=== PATIENT | female | born 1975 | race Caucasian/White ===

== ENCOUNTER 2016-02-23 07:32 | Observation (INO) | payer OTHER ==
[2016-02-23] MEDS ORDERED: SODIUM CHLORIDE 0.9% 500 ML IV STA (07:55)
[2016-02-23] MEDS ORDERED: MORPHINE SULFATE 4 MG/ML SYRINGE IV STA (07:55)
--- NOTE | 2016-02-23 07:58 | ED ---
Abdominal Pain HPI - General Chief Complaint: Abdominal Pain Stated Complaint: abd pain Time Seen by Provider: 02/23/16 07:47 Source: patient, RN notes reviewed Mode of arrival: ambulatory Limitations: no limitations - History of Present Illness MD Complaint: abdominal pain Onset/Timin -: days(s) Location: RLQ Radiation: none Migration to: no migration Severity: severe Quality: sharp Consistency: constant Improves With: nothing Worsens With: nothing Associated Symptoms: denies other symptoms - Related Data Home Medications Medication Instructions Recorded Confirmed Armodafinil [Nuvigil] 375 mg PO DAILY 07/19/13 02/23/16 lamoTRIgine [LaMICtal] 150 mg PO BID 07/19/13 02/23/16 ARIPiprazole [Abilify] 5 mg PO DAILY 02/23/16 02/23/16 Ibuprofen [Motrin] 600 mg PO Q6HR PRN 02/23/16 02/23/16 hydrOXYzine PAMOATE [Vistaril] 25 mg PO DAILY PRN 02/23/16 02/23/16 Allergies Allergy/AdvReac Type Severity Reaction Status Date / Time phenazopyridine HCl Allergy Severe rash Verified 02/23/16 08:40 [From Pyridium] face,arms & [id number] never to have again Review of Systems ROS Statement: Those systems with pertinent positive or pertinent negative responses have been documented in the HPI. ROS Other: All systems not noted in ROS Statement are negative. Constitutional: Denies: fever, chills Respiratory: Denies: cough, dyspnea Cardiovascular: Denies: chest pain, palpitations, edema Gastrointestinal: Reports: as per HPI, abdominal pain, constipation. Denies: nausea, vomiting, diarrhea, melena, hematochezia Genitourinary: Reports: frequency. Denies: dysuria, hematuria, discharge Musculoskeletal: Denies: back pain Skin: Denies: rash Neurological: Denies: headache, weakness, numbness Past Medical History Past Medical History: Sleep Apnea/CPAP/BIPAP Additional Past Medical History / Comment(s): NARCOLEPSY- CONTROLLED WITH MEDS, HEMORRHOIDS- IN ER 10/09/14 FOR PAIN-WAS LANCED AND SENT HOME-SEE ER NOTES-HAS HAD THROMBOSED HEMORRHOIDS X 2 BEFORE, OCCASIONAL DIARRHEA, HAS C-PAP BUT IS NOT USING @ THIS TIME History of Any Multi-Drug Resistant Organisms: None Reported Past Surgical History: Cholecystectomy, Tubal Ligation Additional Past Surgical History / Comment(s): laparoscopy, hemmorhoidectomy Past Anesthesia/Blood Transfusion Reactions: No Reported Reaction Additional Past Anesthesia/Blood Transfusion Reaction / Comment(s): difficulty coming out of anethesia, advised to stay overnight for observation. pt states uncontrollable shaking. Past Psychological History: Bipolar, Depression Smoking Status: Never smoker Past Alcohol Use History: None Reported Past Drug Use History: None Reported - Past Family History Mother Family Medical History: No Reported History Father History Unknown: Yes General Exam Limitations: no limitations General appearance: alert, in distress Head exam: Present: atraumatic, normocephalic Eye exam: Present: normal appearance. Absent: scleral icterus, conjunctival injection ENT exam: Present: normal oropharynx Neck exam: Present: normal inspection Respiratory exam: Present: normal lung sounds bilaterally. Absent: respiratory distress, wheezes, rales, rhonchi, stridor Cardiovascular Exam: Present: regular rate, normal rhythm, normal heart sounds. Absent: systolic murmur, diastolic murmur, rubs, gallop GI/Abdominal exam: Present: soft, tenderness, guarding, normal bowel sounds. Absent: rebound, rigid, mass, pulsatile mass, hernia External exam: Present: normal external exam, other (Chaperoned by Aminata) Speculum exam: Present: normal speculum exam, vaginal discharge. Absent: erythema, foreign body By manual exam: Present: cervical motion tenderness, adnexal tenderness. Absent : uterine enlargement, uterine tenderness Extremities exam: Present: normal inspection, normal capillary refill. Absent: pedal edema, calf tenderness Back exam: Present: normal inspection. Absent: CVA tenderness (R), CVA tenderness (L) Neurological exam: Present: alert Skin exam: Present: warm, dry, intact, normal color. Absent: rash, cyanosis, diaphoretic, erythema, petechiae, pallor, mottled Course Vital Signs 02/23/16 02/23/16 02/23/16 07:38 08:14 10:48 Temperature 99 F Pulse Rate 63 83 Respiratory 20 18 Rate Blood Pressure 105/73 111/51 O2 Sat by Pulse 98 99 Oximetry 02/23/16 12:35 Temperature 97.6 F Pulse Rate 72 Respiratory 16 Rate Blood Pressure 112/60 O2 Sat by Pulse 100 Oximetry Medical Decision Making - Lab Data Result diagrams: 02/23/16 08:00 02/23/16 08:00 Lab Results 02/23/16 02/23/16 02/23/16 Range/Units 08:00 08:00 08:50 WBC 8.2 (3.8-10.6) k/uL RBC 4.65 (3.80-5.40) m/uL Hgb 13.4 (11.4-16.0) gm/dL Hct 39.8 (34.0-46.0) % MCV 85.7 (80.0-100.0) fL MCH 28.9 (25.0-35.0) pg MCHC 33.7 (31.0-37.0) g/dL RDW 12.7 (11.5-15.5) % Plt Count 375 (150-450) k/uL Neutrophils % 63 % Lymphocytes % 24 % Monocytes % 6 % Eosinophils % 4 % Basophils % 1 % Neutrophils # 5.2 (1.3-7.7) k/uL Lymphocytes # 2.0 (1.0-4.8) k/uL Monocytes # 0.5 (0-1.0) k/uL Eosinophils # 0.4 (0-0.7) k/uL Basophils # 0.1 (0-0.2) k/uL Sodium 144 (137-145) mmol/L Potassium 4.3 (3.5-5.1) mmol/L Chloride 109 H (98-107) mmol/L Carbon Dioxide 23 (22-30) mmol/L Anion Gap 12 mmol/L BUN 13 (7-17) mg/dL Creatinine 0.70 (0.52-1.04) mg/dL Est GFR (MDRD) Af Amer >60 (>60 ml/min/1.73 sqM) Est GFR (MDRD) Non-Af >60 (>60 ml/min/1.73 sqM) Glucose 105 H (74-99) mg/dL Calcium 9.3 (8.4-10.2) mg/dL Total Bilirubin 0.3 (0.2-1.3) mg/dL AST 25 (14-36) U/L ALT 43 (9-52) U/L Alkaline Phosphatase 84 (38-126) U/L Total Protein 7.2 (6.3-8.2) g/dL Albumin 4.4 (3.5-5.0) g/dL Urine Color Urine Appearance (Clear) Urine pH (5.0-8.0) Ur Specific Evans (1.001-1.035) Urine Protein (Negative) Urine Glucose (UA) (Negative) Urine Ketones (Negative) Urine Blood (Negative) Urine Nitrate (Negative) Urine Bilirubin (Negative) Urine Urobilinogen (<2.0) mg/dL Ur Leukocyte Esterase (Negative) Urine WBC (0-5) /hpf Ur Squamous Epith Cells (0-4) /hpf Urine Mucus (None) /hpf Urine HCG, Qual Not Detected (Not Detectd) 02/23/16 Range/Units 08:50 WBC (3.8-10.6) k/uL RBC (3.80-5.40) m/uL Hgb (11.4-16.0) gm/dL Hct (34.0-46.0) % MCV (80.0-100.0) fL MCH (25.0-35.0) pg MCHC (31.0-37.0) g/dL RDW (11.5-15.5) % Plt Count (150-450) k/uL Neutrophils % % Lymphocytes % % Monocytes % % Eosinophils % % Basophils % % Neutrophils # (1.3-7.7) k/uL Lymphocytes # (1.0-4.8) k/uL Monocytes # (0-1.0) k/uL Eosinophils # (0-0.7) k/uL Basophils # (0-0.2) k/uL Sodium (137-145) mmol/L Potassium (3.5-5.1) mmol/L Chloride (98-107) mmol/L Carbon Dioxide (22-30) mmol/L Anion Gap mmol/L BUN (7-17) mg/dL Creatinine (0.52-1.04) mg/dL Est GFR (MDRD) Af Amer (>60 ml/min/1.73 sqM) Est GFR (MDRD) Non-Af (>60 ml/min/1.73 sqM) Glucose (74-99) mg/dL Calcium (8.4-10.2) mg/dL Total Bilirubin (0.2-1.3) mg/dL AST (14-36) U/L ALT (9-52) U/L Alkaline Phosphatase (38-126) U/L Total Protein (6.3-8.2) g/dL Albumin (3.5-5.0) g/dL Urine Color Yellow Urine Appearance Clear (Clear) Urine pH 7.0 (5.0-8.0) Ur Specific Evans 1.016 (1.001-1.035) Urine Protein Negative (Negative) Urine Glucose (UA) Negative (Negative) Urine Ketones Negative (Negative) Urine Blood Negative (Negative) Urine Nitrate Negative (Negative) Urine Bilirubin Negative (Negative) Urine Urobilinogen <2.0 (<2.0) mg/dL Ur Leukocyte Esterase Small H (Negative) Urine WBC 1 (0-5) /hpf Ur Squamous Epith Cells 2 (0-4) /hpf Urine Mucus Occasional H (None) /hpf Urine HCG, Qual (Not Detectd) Disposition Clinical Impression: Abdominal pain Disposition: ADMITTED IP TO THIS [facility] Condition: Fair
[2016-02-23 08:16] LABS: Basophils # (A) 0.1 k/uL (0-0.2); Basophils % (A) 1 %; CH 29.9; Eosinophils # (A) 0.4 k/uL (0-0.7); Eosinophils % (A) 4 %; HCT 39.8 % (34.0-46.0); HDW 2.68; HGB 13.4 gm/dL (11.4-16.0); Luc # (Auto) 0.13; Luc % (Auto) 2; Lymphocytes % (A) 24 %; MCH 28.9 pg (25.0-35.0); MCHC 33.7 g/dL (31.0-37.0); MCV 85.7 fL (80.0-100.0); Mean Platelet Volume 6.6; Monocytes # (A) 0.5 k/uL (0-1.0); Monocytes % (A) 6 %; Neutrophils # (A) 5.2 k/uL (1.3-7.7); Neutrophils % (A) 63 %; RBC 4.65 m/uL (3.80-5.40); RDW 12.7 % (11.5-15.5); WBC 8.2 k/uL (3.8-10.6); WBC (Perox) 8.09
[2016-02-23 08:28] LABS: ALT 43 U/L (9-52); AST 25 U/L (14-36); Alkaline Phosphatase 84 U/L (38-126); Anion Gap 12 mmol/L; Blood Urea Nitrogen 13 mg/dL (7-17); Calcium 9.3 mg/dL (8.4-10.2); Carbon Dioxide 23 mmol/L (22-30); Chloride 109 mmol/L (98-107); Glucose 105 mg/dL (74-99); Non-African American GFR(MDRD) >60 (>60 ml/min/1.73 sqM); Potassium 4.3 mmol/L (3.5-5.1); Sodium 144 mmol/L (137-145); Total Bilirubin 0.3 mg/dL (0.2-1.3); Total Protein 7.2 g/dL (6.3-8.2)
[2016-02-23 09:51] LABS: Appearance,Urine Clear (Clear); Bilirubin,Urine Negative (Negative); Glucose,Urine (UA) Negative (Negative); Ketones,Urine Negative (Negative); Leukocyte Esterase,Urine Small (Negative); Mucus,Urine Occasional /hpf; Nitrite,Urine Negative (Negative); Particle Count 4848; Protein,Urine Negative (Negative); Specific Gravity,Urine 1.016 (1.001-1.035); Squamous Epithelial Cell,Urine 2 /hpf (0-4); UA Billing (MACRO vs. MICRO) MICRO; Urobilinogen,Urine <2.0 mg/dL (<2.0); WBC,Urine 1 /hpf (0-5)
--- NOTE | 2016-02-23 10:15 | CT ---
EXAMINATION TYPE: CT abdomen pelvis wo con DATE OF EXAM: 02/23/2016 10:02 AM COMPARISON: 03/16/2013 HISTORY: 40-year-old female complaining of severe right lower quadrant pain onset [address] DLP: 573.70 mGycm. Automated exposure control for dose reduction was used. TECHNIQUE: Contiguous axial scanning of the abdomen and pelvis without IV contrast. Coronal and sagit leni reconstructions performed. FINDINGS: Heart is normal size without pericardial effusion. Lung bases are clear without pleural effusion. Noncontrast appearance of the liver, adrenal glands, right kidney, spleen, and pancreas shows no alex s abnormal mobility. There is a punctate 2 mm nonobstructive calculus in the upper pole left kidney. No hydronephrosis see n on either side. No dilated small bowel, free fluid, or free air. Small fatty umbilical hernia. There is mild overall stool burden without pericolonic inflammatory change seen. Portion of a normal- appearing appendix is visualized. Bladder is urine distended. Uterus and both ovaries are visualized. Bilateral tubal ligation clips, 2 on the left and one on the right. No abnormal fluid collection in the pelvis or pelvic lymphadenopat hy. Bones: Degenerative changes at the left SI joint. No osseous destructive process. IMPRESSION: 1. NORMAL APPENDIX. NO ACUTE INFLAMMATORY PROCESS IDENTIFIED IN THE ABDOMEN OR PELVIS TO EXPLAIN THE PATIENT'S SYMPTOMS. 2. PUNCTATE 2 MM NONOBSTRUCTIVE LEFT RENAL CALCULUS. 3. SMALL FATTY UMBILICAL HERNIA.
[2016-02-23] MEDS ORDERED: HYDROmorphone 1 MG/ML 1 ML SYRINGE IVP STA ×2 (11:15→12:57)
--- NOTE | 2016-02-23 11:27 | US ---
EXAMINATION TYPE: US pelvic complete DATE OF EXAM: 02/23/2016 11:10 AM COMPARISON: NONE CLINICAL HISTORY:Severe Pelvic pain, more on the right. Patient of large body habitus. TECHNIQUE: Transvaginal (TV) Date of LMP: 02/05/17 EXAM MEASUREMENTS: Uterus: 8.7 x 4.2 x 4.3cm Endometrial Stripe: 0.8cm Right Ovary: obscured by overlying bowel gas Left Ovary: obscured by overlying bowel gas FINDINGS: 1. Uterus: Anteverted 2. Endometrium: wnl 3. Right Ovary: obscured by overlying bowel gas 4. Left Ovary: obscured by overlying bowel gas 5. Bilateral Adnexa: wnl 6. Posterior cul-de-sac: wnl IMPRESSION: No distinct abnormality seen on this somewhat limited study. Normal Values: Uterine Length: < 10cm Endometrium: Proliferative (Day 6 ? 14): 4 ? 6mm Secretory (Day 15 ? 28): 7 ? 14mm Post Menopausal (and not symptomatic): up to 8mm Post Menopausal (with vaginal bleeding): upper limits <5mm Post Menopausal with HRT: upper limits 8 - 15mm Post Menopausal with tamoxifen: < 6mm (although 50% of those receiving tamoxifen have been reported t o have thickness >8mm)
[2016-02-23] MEDS ORDERED: HYDROmorphone 1 MG/ML 1 ML SYRINGE IV PRN (12:11)
[2016-02-23] MEDS ORDERED: NALOXONE 0.4 MG/ML 1 ML VIAL IV PRN (12:11)
[2016-02-23] MEDS ORDERED: MORPHINE SULFATE 4 MG/ML SYRINGE IV PRN (12:11)
[2016-02-23] MEDS ORDERED: ONDANSETRON 4 MG/2 ML VIAL IVP STA (16:42)
[2016-02-23] MEDS ORDERED: ONDANSETRON 4 MG/2 ML VIAL ONE (16:43)
[2016-02-23] MEDS ORDERED: hydrOXYzine PAMOATE 25 MG CAP PO PRN (16:55)
[2016-02-23] MEDS ORDERED: ONDANSETRON 4 MG/2 ML VIAL IVP PRN (17:00)
[2016-02-23] MEDS ORDERED: ARMODAFINIL PO SCH (17:00)
[2016-02-23] MEDS ORDERED: SCOPOLAMINE 1.5MG/72HR PATCH TRANSDERM SCH (17:30)
--- NOTE | 2016-02-23 17:34 | P.GSHP ---
History of Present Illness H&P Date: 02/23/16 Chief Complaint: RLQ Pain 40 years old female presents with acute onset of right lower quadrant pain for last 2 days. Pain is described as severe, colicky, radiates to the right groin. No history of fever or chills or rigors. She had nausea and vomiting after pain medications. Last bowel movement was this morning. No burning urination. No vaginal discharge. No change in bowel habits. Prior history of open hemorrhoidectomy, laparoscopic cholecystectomy, diagnostic laparoscopy with lysis of adhesions, tubal ligation. Computed tomography scan of the abdomen and pelvis: No acute appendicitis. 2 mm punctate stone in the left kidney. No hydronephrosis. Transvaginal ultrasound: Ovaries could not be visualized. No other abnormalities noted - Review of Systems Comment: Constitutional: Denies fever, weight loss or loss of appetite HEENT: No difficulty in vision or hearing. Denies dysphagia. Cardiovascular: Denies chest pain, palpitations, dizziness, shortness of breath. Respiratory: No cough or shortness of breath. Sleep apnea and narcolepsy Gastrointestinal: As stated in history of present illness Genitourinary: No urinary incontinence, hematuria or dysuria Neurologic: No seizures, denies weakness in upper or lower extremities Psychiatry: Known history of depression, no suicidal ideation, has anxiety and bipolar Past Medical History Past Medical History: Sleep Apnea/CPAP/BIPAP Additional Past Medical History / Comment(s): Recent UTI, NARCOLEPSY- CONTROLLED WITH MEDS, thrombosed hemorrhoids x 2, OCCASIONAL DIARRHEA. History of Any Multi-Drug Resistant Organisms: None Reported Past Surgical History: Cholecystectomy, Tubal Ligation Additional Past Surgical History / Comment(s): laparoscopy for adhesions, hemorrhoidectomy Past Anesthesia/Blood Transfusion Reactions: No Reported Reaction Additional Past Anesthesia/Blood Transfusion Reaction / Comment(s): difficulty coming out of anethesia, advised to stay overnight for observation. pt states uncontrollable shaking. Past Psychological History: Anxiety, Bipolar, Depression Additional Psychological History / Comment(s): Pt resides with 2 children ages, 12 and 17 yrs. She is independent. Smoking Status: Never smoker Past Alcohol Use History: None Reported Past Drug Use History: None Reported - Past Family History Father History Unknown: Yes Mother Family Medical History: Hypertension Medications and Allergies Home Medications Medication Instructions Recorded Confirmed Type Armodafinil [Nuvigil] 375 mg PO DAILY 07/19/13 02/23/16 History lamoTRIgine [LaMICtal] 150 mg PO BID 07/19/13 02/23/16 History ARIPiprazole [Abilify] 5 mg PO DAILY 02/23/16 02/23/16 History Ibuprofen [Motrin] 600 mg PO Q6HR PRN 02/23/16 02/23/16 History hydrOXYzine PAMOATE [Vistaril] 25 mg PO DAILY PRN 02/23/16 02/23/16 History Allergies Allergy/AdvReac Type Severity Reaction Status Date / Time phenazopyridine HCl Allergy Severe rash Verified 02/23/16 08:40 [From Pyridium] face,arms & [id number] never to have again Surgical - Exam Vital Signs Temp Pulse Resp Pulse Ox 99 F 63 20 98 02/23/16 07:38 02/23/16 07:38 02/23/16 07:38 02/23/16 07:38 General: Patient is alert and oriented to time, place and person and cooperative with exam. HEENT: No pallor, no icterus, Chest: Bilateral equal breath sounds present. No wheezes, no crackles. Cardiovascular: Regular rate and rhythm. Abdomen: Soft, nontender, nondistended. No peritonitis. No guarding or rigidity. Integumentary: No active ulcers or discharge. Neurologic: Cranial nerves II-XII intact. Strength upper and lower extremities 5/5. No focal neurologic deficits. Psychiatric: No anxiety or psychosis. Results - Labs 02/23/16 08:00 02/23/16 08:00 - Imaging CT scan - abdomen: image reviewed US - abdomen: report reviewed Assessment and Plan (1) Right sided abdominal pain Status: Acute Plan: 40 years old female with obesity BMI 34.8, narcolepsy, sleep apnea presents with acute onset right lower quadrant pain. No peritoneal signs and clinical exam. No fever, no leukocytosis. Computed tomography scan and transvaginal ultrasound did not show any acute findings. Patient at the time of the examination is comfortable. No evidence of peritonitis and clinical exam. Close observation Start clear liquid diet Check CBC, CMP in the morning IV fluids Scopolamine patch and Zofran IV for nausea. DVT and GI prophylaxis Documentation Consultant consult pending No antibiotics
[2016-02-23] MEDS: ARIPiprazole 5 MG TAB PO SCH (18:18)
[2016-02-23] MEDS: PANTOPRAZOLE 40 MG/10 ML VIAL IVP SCH (18:19)
[2016-02-23] MEDS: KETOROLAC 30 MG/ML 1 ML VIAL IVP SCH (18:19)
[2016-02-23] MEDS: SODIUM CHLORIDE 0.9% 1,000 ML IV SCH (18:45)
[2016-02-23] MEDS: lamoTRIgine 100 MG TAB PO SCH (20:18)
[2016-02-24] MEDS: KETOROLAC 30 MG/ML 1 ML VIAL IVP SCH ×4 (00:01→18:24)
[2016-02-24] MEDS: SODIUM CHLORIDE 0.9% 1,000 ML IV SCH ×2 (04:04→19:44)
[2016-02-24 07:39] LABS: Basophils % (A) 1 %; CH 29.5; CHCM 33.9; Eosinophils # (A) 0.3 k/uL (0-0.7); Eosinophils % (A) 5 %; HCT 37.1 % (34.0-46.0); HDW 2.65; HGB 12.1 gm/dL (11.4-16.0); Luc # (Auto) 0.08; Luc % (Auto) 1; Lymphocytes # (A) 1.8 k/uL (1.0-4.8); Lymphocytes % (A) 29 %; MCH 28.4 pg (25.0-35.0); MCHC 32.5 g/dL (31.0-37.0); MCV 87.3 fL (80.0-100.0); Mean Platelet Volume 6.7; Monocytes # (A) 0.4 k/uL (0-1.0); Monocytes % (A) 6 %; Neutrophils # (A) 3.7 k/uL (1.3-7.7); Neutrophils % (A) 58 %; RBC 4.25 m/uL (3.80-5.40); RDW 12.7 % (11.5-15.5); WBC 6.3 k/uL (3.8-10.6); WBC (Perox) 6.66
[2016-02-24 07:50] LABS: ALT 41 U/L (9-52); AST 24 U/L (14-36); Alkaline Phosphatase 73 U/L (38-126); Amylase <30 U/L (30-110); Anion Gap 7 mmol/L; Blood Urea Nitrogen 9 mg/dL (7-17); Calcium 8.3 mg/dL (8.4-10.2); Carbon Dioxide 25 mmol/L (22-30); Chloride 109 mmol/L (98-107); Glucose 97 mg/dL (74-99); Non-African American GFR(MDRD) >60 (>60 ml/min/1.73 sqM); Sodium 141 mmol/L (137-145); Total Bilirubin 0.4 mg/dL (0.2-1.3)
[2016-02-24] MEDS ORDERED: PANTOPRAZOLE 40 MG/10 ML VIAL IV SCH (09:00)
[2016-02-24] MEDS: PANTOPRAZOLE 40 MG/10 ML VIAL IVP SCH (09:42)
[2016-02-24] MEDS: lamoTRIgine 100 MG TAB PO SCH ×2 (09:42→20:29)
--- NOTE | 2016-02-24 10:25 | P.OBCN ---
History of Present Illness Consult date: 02/24/16 Requesting physician: Jessy Truong Reason for consult: pelvic pain Chief complaint: Acute pelvic pain History of present illness: The patient is a 40-year-old 3 para 2011 admitted through the emergency room with a history of acute pelvic pain, more on the right than the left, which began our was first noted on Friday evening at the time of urination. Following finishing voiding, she reported acute central and right-sided discomfort which then over the course of sometimes slowly abated. The following day she was able to perform most of her activities. Following the end of the day, however, the pain returned with more intensity than she had had at any point earlier. The pain radiated to the right side fairly consistently. She did ultimately presented to the emergency room where computed tomography scan demonstrated essentially negative findings with a small right renal calculus. Subsequent pelvic ultrasound was nondiagnostic. Neither ovary was clearly visualized but there was no apparent free fluid nor any significant findings. The patient reports that her cycles have been irregular for quite some time with no clearcut of normal cycle pattern recently. She has had several episodes of irregular vaginal spotting over the last 2 months. Method of contraception is tubal ligation. She has no concern for infections or STDs of any kind. She does report that her pain has gradually improved over the last 24 hours but that the pain medication is significantly helpful. She initially had significant nausea with the onset of the pain but this has resolved. She does not at this time feel hungry but is tolerating liquids. Obstetrical history 3 para 2011 with 2 term vaginal deliveries and one early miscarriage. Method contraception is tubal ligation. Gynecologic history is unremarkable with no history of any infections to include STDs. Review of Systems Review of systems is confined to history of present illness. Past Medical History Past Medical History: Sleep Apnea/CPAP/BIPAP Additional Past Medical History / Comment(s): NARCOLEPSY- CONTROLLED WITH MEDS, HEMORRHOIDS- IN ER 10/09/14 FOR PAIN-WAS LANCED AND SENT HOME-SEE ER NOTES-HAS HAD THROMBOSED HEMORRHOIDS X 2 BEFORE, OCCASIONAL DIARRHEA, HAS C-PAP BUT IS NOT USING @ THIS TIME History of Any Multi-Drug Resistant Organisms: None Reported Past Surgical History: Cholecystectomy, Tubal Ligation Additional Past Surgical History / Comment(s): laparoscopy, hemmorhoidectomy Past Anesthesia/Blood Transfusion Reactions: No Reported Reaction Additional Past Anesthesia/Blood Transfusion Reaction / Comm: difficulty coming out of anethesia, advised to stay overnight for observation. pt states uncontrollable shaking. Past Psychological History: Bipolar, Depression Additional Psychological History / Comment(s): Pt resides with 2 children ages, 12 and 17 yrs. She is independent. Smoking Status: Never smoker Past Alcohol Use History: None Reported Past Drug Use History: None Reported - Past Family History Father History Unknown: Yes Mother Family Medical History: No Reported History Medications and Allergies Home Medications Medication Instructions Recorded Confirmed Type Armodafinil [Nuvigil] 375 mg PO DAILY 07/19/13 02/23/16 History lamoTRIgine [LaMICtal] 150 mg PO BID 07/19/13 02/23/16 History ARIPiprazole [Abilify] 5 mg PO DAILY 02/23/16 02/23/16 History Ibuprofen [Motrin] 600 mg PO Q6HR PRN 02/23/16 02/23/16 History hydrOXYzine PAMOATE [Vistaril] 25 mg PO DAILY PRN 02/23/16 02/23/16 History Allergies Allergy/AdvReac Type Severity Reaction Status Date / Time phenazopyridine HCl Allergy Severe rash Verified 02/23/16 08:40 [From Pyridium] face,arms & [id number] never to have again Exam - Vital Signs Vital signs: Vital Signs Temp Pulse Pulse Pulse Resp BP BP 02/24/16 08:00 98.4 F 68 16 02/24/16 04:00 98.4 F 69 18 02/24/16 03:57 18 02/24/16 00:00 18 02/23/16 20:00 18 02/23/16 19:39 98.0 F 72 18 02/23/16 16:00 97.5 F L 74 16 120/81 02/23/16 13:40 82 18 02/23/16 13:05 98.2 F 82 18 140/73 02/23/16 12:35 97.6 F 72 16 112/60 BP Pulse Ox 02/24/16 08:00 93/46 100 02/24/16 04:00 90/50 100 02/24/16 03:57 02/24/16 00:00 02/23/16 20:00 02/23/16 19:39 100/57 100 02/23/16 16:00 97 02/23/16 13:40 02/23/16 13:05 100 02/23/16 12:35 100 Intake and Output 02/23/16 02/24/16 02/24/16 22:59 06:59 14:59 Intake Total 418 Balance 418 Intake: Oral 418 Other: # Voids 1 1 In general, this is a mildly obese white female in no acute distress. Her heart has regular rhythm and rate without murmur. Her lungs clear to auscultation bilaterally in all scherer. Her abdomen is nondistended, is soft, with mild right lower quadrant tenderness and suprapubic tenderness. There is slight guarding but no rebound present. Palpation of the right lower quadrant demonstrates that the pain follows the course of the right ureter to some extent. Bimanual pelvic examination demonstrates normal external genitalia and BUS with normal vaginal mucosa and cervix to palpation. The there is slight bladder tenderness. There is also slight cervical motion tenderness. The uterus feels to be normal size and shape but the examination is limited secondary to the patient's discomfort with the abdominal examining hand. The left adnexa is normal and nontender without any apparent masses while the right adnexa could not be clearly felt given the patient's discomfort on that side. Results Result Diagrams: 02/24/16 07:08 02/24/16 07:08 Abnormal Lab Results - Last 24 Hours (Table) 02/24/16 Range/Units 07:08 Chloride 109 H (98-107) mmol/L Calcium 8.3 L (8.4-10.2) mg/dL Total Protein 6.0 L (6.3-8.2) g/dL Amylase <30 L (30-110) U/L Assessment and Plan (1) Right sided abdominal pain Status: Acute Plan: The history as well as the physical findings would lean towards a diagnosis of nephrolithiasis with a stone passing through the distal ureter at this time. It would be a consideration to strain her urine but to otherwise continue aggressive IV hydration. I do not find any acute abdominal process from a gynecologic perspective that would necessitate possible surgery. Another potential etiology could be a ruptured hemorrhagic cyst, but the course and history are not consistent with this finding and there is no evidence of free fluid in the pelvis on CT or ultrasound. From a laboratory perspective, she is entirely stable with her hemoglobin and hematocrit remaining stable and no elevation in leukocytosis, normal white count at presentation and today. Her level of discomfort does still require IV pain control at this time but consideration could be made for advancing her to oral pain medications and attempting to advance her diet as well. Thank you for allowing me to [facility] the care of this patient and if you have any further questions or concerns in the contact me. I will follow at a distance.
[2016-02-24] MEDS: ARMODAFINIL 250 MG PO SCH (11:10)
[2016-02-24] MEDS: ARIPiprazole 5 MG TAB PO SCH (12:20)
[2016-02-24] MEDS: HEPARIN SODIUM,PORCINE 5,000 UNIT/ML 1 ML VIAL SQ SCH ×3 (12:20→18:28)
[2016-02-24 16:16] LABS: CH 29.6; CHCM 34.3; HGB 12.4 gm/dL (11.4-16.0); MCH 29.1 pg (25.0-35.0); MCHC 33.6 g/dL (31.0-37.0); MCV 86.5 fL (80.0-100.0); Mean Platelet Volume 7.3; RBC 4.28 m/uL (3.80-5.40); RDW 12.7 % (11.5-15.5); WBC 8.1 k/uL (3.8-10.6)
--- NOTE | 2016-02-24 18:48 | P.PN ---
Subjective Principal diagnosis: RLQ pain 40 yrs old female presenting with RLQ pain , now improving. Nausea and vomiting resolved. Small BM. Toleating liquids. Occasional cramps Objective - Vital Signs Vital signs: Vital Signs Temp 98.8 F 02/24/16 16:00 Pulse 72 02/24/16 16:00 Resp 18 02/24/16 16:00 BP 113/53 02/24/16 16:00 Pulse Ox 100 02/24/16 16:00 Intake & Output 02/23/16 02/24/16 02/24/16 18:59 06:59 18:59 Intake Total 418 Balance 418 Intake: Oral 418 Other: Voiding Method Toilet # Voids 1 - Exam General: Patient is alert and oriented to time, place and person and cooperative with exam. HEENT: No pallor, no icterus Cardiovascular: Regular rate and rhythm. Abdomen: Soft, nontender, nondistended. Neurologic: Cranial nerves II-XII intact. Strength upper and lower extremities 5/5. No focal neurologic deficits. Gait is normal. - Labs CBC & Chem 7: 02/24/16 15:51 02/24/16 07:08 Labs: Abnormal Lab Results - Last 24 Hours (Table) 02/24/16 Range/Units 07:08 Chloride 109 H (98-107) mmol/L Calcium 8.3 L (8.4-10.2) mg/dL Total Protein 6.0 L (6.3-8.2) g/dL Amylase <30 L (30-110) U/L Assessment and Plan (1) Right sided abdominal pain Status: Acute Plan: 40 years old female with obesity BMI 34.8, narcolepsy, sleep apnea presents with acute onset right lower quadrant pain. No peritoneal signs and clinical exam. No fever, no leukocytosis. Computed tomography scan and transvaginal ultrasound did not show any acute findings. 2mm left renal stone Patient at the time of the examination is comfortable. No evidence of peritonitis and clinical exam. Close observation Start full liquid diet CBC, CMP -normal IV fluids-heplock Scopolamine patch and Zofran IV for nausea. DVT and GI prophylaxis Telecommunication Tower Technician consult noted No antibiotics Discharge in 24-48 hrs
[2016-02-24] MEDS ORDERED: ZOLPIDEM 5 MG TAB PO PRN (20:27)
[2016-02-24] MEDS ORDERED: ARIPiprazole 5 MG TAB PO SCH (21:00)
[2016-02-25] MEDS: KETOROLAC 30 MG/ML 1 ML VIAL IVP SCH ×3 (00:16→05:43)
[2016-02-25] MEDS: HEPARIN SODIUM,PORCINE 5,000 UNIT/ML 1 ML VIAL SQ SCH ×2 (00:17→08:35)
[2016-02-25 08:16] VITALS: RESP 16
[2016-02-25] MEDS: ARMODAFINIL 250 MG PO SCH (08:35)
[2016-02-25] MEDS: lamoTRIgine 100 MG TAB PO SCH (08:36)
[2016-02-25] MEDS: PANTOPRAZOLE 40 MG/10 ML VIAL IVP SCH (11:04)
[2016-02-25 11:59] VITALS: BP 134/79; PULSE 80; TEMP 98.2
--- NOTE | 2016-02-25 13:13 | P.DS ---
Providers Date of admission: 02/23/16 12:11 Expected date of discharge: 02/25/16 Attending physician: Jessy Truong Primary care physician: Satish Amaya - Discharge Diagnosis(es) (1) Right sided abdominal pain Current Visit: Yes Status: Acute Hospital Course: 40 old female presented with right-sided abdominal pain, nausea and vomiting. Computed tomography scan showed a 2 mm left kidney stone without any hydronephrosis. Transvaginal ultrasound no significant finding. No leukocytosis. Patient pain is improved. Nausea and vomiting has improved. No new complaints Patient Condition at Discharge: Fair Plan - Discharge Summary Discharge Medication List Armodafinil [Nuvigil] 375 mg PO DAILY 07/19/13 [History] lamoTRIgine [LaMICtal] 150 mg PO BID 07/19/13 [History] ARIPiprazole [Abilify] 5 mg PO HS 02/23/16 [History] Ibuprofen [Motrin] 600 mg PO Q6HR PRN 02/23/16 [History] hydrOXYzine PAMOATE [Vistaril] 25 mg PO DAILY PRN 02/23/16 [History] Follow up Appointment(s)/Referral(s): Satish Amaya DO [Primary Care Provider] - 1 Week Patient Instructions/Handouts: Abdominal Pain (ED) Activity/Diet/Wound Care/Special Instructions: Regular diet Discharge Disposition: HOME SELF-CARE
[2016-02-26 09:57] LABS: Chlamydia/GC Source Vaginal
== END 2016-02-25 13:41 | disposition home or self-care (01) ==
LOC: EC 07:32 → 3OBS 12:11
PROVIDERS: ADMIT Surgery; ATTEND Surgery
DX: R10.9 Unspecified abdominal pain (principal); N20.0 Calculus of kidney; E66.9 Obesity, unspecified; Z68.34 Body mass index [BMI] 34.0-34.9, adult; F32.9 Major depressive disorder, single episode, unspecified; F41.9 Anxiety disorder, unspecified; G47.30 Sleep apnea, unspecified; G47.419 Narcolepsy without cataplexy; Z82.49 Family history of ischemic heart disease and other diseases of the circulatory system; Z79.899 Other long term (current) drug therapy; Z88.8 Allergy status to other drugs, medicaments and biological substances; Z90.49 Acquired absence of other specified parts of digestive tract
CPT/HCPCS: 36415; 80053 ×2; 87591; 87491; 82150; 83690; 85025 ×2; 85027; 82272; 81001; 81025; 80299; 76830; 74176; 99285; 96374; 96375; 96376; 96361 ×2; G0378 ×3; J2270; J1644; J2405; J1885 ×2; J1170; C9113 ×3; 87324; 96372

== ENCOUNTER 2016-06-22 10:58 | Emergency (ER) | payer OTHER ==
[2016-06-22 11:01] VITALS: RESP 16; TEMP 97.4
[2016-06-22 12:00] LABS: Appearance,Urine Cloudy (Clear); Bacteria,Urine Occasional /hpf; Bilirubin,Urine Negative (Negative); Glucose,Urine (UA) Negative (Negative); Ketones,Urine Negative (Negative); Leukocyte Esterase,Urine Large (Negative); Mucus,Urine Rare /hpf; Nitrite,Urine Negative (Negative); PH, Urine 6.5 (5.0-8.0); Particle Count 11734; Protein,Urine Negative (Negative); RBC,Urine 7 /hpf (0-5); Specific Gravity,Urine 1.013 (1.001-1.035); Squamous Epithelial Cell,Urine 5 /hpf (0-4); UA Billing (MACRO vs. MICRO) MICRO; Urobilinogen,Urine <2.0 mg/dL (<2.0); WBC,Urine 9 /hpf (0-5)
[2016-06-22] MEDS ORDERED: HYDROmorphone 1 MG/ML 1 ML SYRINGE IVP STA (12:05)
[2016-06-22] MEDS ORDERED: ONDANSETRON 4 MG/2 ML VIAL IVP STA (12:06)
--- NOTE | 2016-06-22 12:09 | ED ---
Abdominal Pain HPI - General Chief Complaint: Abdominal Pain Stated Complaint: lower abdominal pain, female gu Time Seen by Provider: 06/22/16 11:24 Source: patient, RN notes reviewed Mode of arrival: ambulatory Limitations: no limitations - History of Present Illness Initial Comments: 41-year-old female presents emergency room for evaluation of bladder pain. Patient states she's had this issue the past. Patient states she was admitted back in February for the same type pain. Patient states they could not figure out what was wrong and discharged her. Patient states that she began having the bladder pain a few days ago associated with right lower quadrant pain. Patient states return to primary care provider and told it was stress. Patient denies urinary symptoms. Patient denies pain or burning during urination or difficulty urinating. Patient states having a sharp pain in her bladder area. Patient states feels like her bladder is swollen. Patient denies fevers or chills. Patient states she's nauseated but denies vomiting. Patient states she has a history of a cholecystectomy and tubal ligation. Patient states she woke up this morning with excruciating pain. Patient states the pain is sharp and constant. Patient denies diarrhea constipation. Patient's chest pain shortness breath. Denies headache or dizziness. - Related Data Home Medications Medication Instructions Recorded Confirmed Armodafinil [Nuvigil] 375 mg PO DAILY 07/19/13 06/22/16 lamoTRIgine [LaMICtal] 150 mg PO BID 07/19/13 06/22/16 Ibuprofen [Motrin] 600 mg PO Q6HR PRN 02/23/16 06/22/16 hydrOXYzine PAMOATE [Vistaril] 25 mg PO DAILY PRN 02/23/16 06/22/16 Lurasidone [Latuda] 80 mg PO HS 06/22/16 06/22/16 Previous Rx's Medication Instructions Recorded Nitrofurantoin Monohyd/M-Cryst 100 mg PO Q12HR 7 Days 06/22/16 [Macrobid] Allergies Allergy/AdvReac Type Severity Reaction Status Date / Time phenazopyridine HCl Allergy Severe rash Verified 06/22/16 11:01 [From Pyridium] face,arms & [id number] never to have again Review of Systems ROS Statement: Those systems with pertinent positive or pertinent negative responses have been documented in the HPI. ROS Other: All systems not noted in ROS Statement are negative. Past Medical History Past Medical History: Sleep Apnea/CPAP/BIPAP Additional Past Medical History / Comment(s): NARCOLEPSY- CONTROLLED WITH MEDS, HEMORRHOIDS- IN ER 10/09/14 FOR PAIN-WAS LANCED AND SENT HOME-SEE ER NOTES-HAS HAD THROMBOSED HEMORRHOIDS X 2 BEFORE, OCCASIONAL DIARRHEA, HAS C-PAP BUT IS NOT USING @ THIS TIME History of Any Multi-Drug Resistant Organisms: None Reported Past Surgical History: Cholecystectomy, Tubal Ligation Additional Past Surgical History / Comment(s): laparoscopy, hemmorhoidectomy Past Anesthesia/Blood Transfusion Reactions: No Reported Reaction Additional Past Anesthesia/Blood Transfusion Reaction / Comment(s): difficulty coming out of anethesia, advised to stay overnight for observation. pt states uncontrollable shaking. Past Psychological History: Bipolar, Depression Additional Psychological History / Comment(s): Pt resides with 2 children ages, 12 and 17 yrs. She is independent. Smoking Status: Never smoker Past Alcohol Use History: None Reported Past Drug Use History: None Reported - Past Family History Father History Unknown: Yes Mother Family Medical History: No Reported History General Exam - General Exam Comments Initial Comments: laying in exam room mild distress secondary to pain Limitations: no limitations General appearance: alert, in no apparent distress Head exam: Present: atraumatic, normocephalic, normal inspection Eye exam: Present: normal appearance ENT exam: Present: normal exam Neck exam: Present: normal inspection Respiratory exam: Present: normal lung sounds bilaterally. Absent: respiratory distress Cardiovascular Exam: Present: regular rate, normal rhythm, normal heart sounds GI/Abdominal exam: Present: soft, tenderness (over the suprapubic region), normal bowel sounds. Absent: distended, guarding, rebound, rigid Extremities exam: Present: normal inspection Back exam: Present: normal inspection Neurological exam: Present: alert, oriented X3, CN II-XII intact, normal gait Psychiatric exam: Present: normal affect, normal mood Skin exam: Present: warm, dry, intact, normal color. Absent: rash Course Vital Signs 06/22/16 06/22/16 10:59 14:40 Temperature 97.4 F L 97.4 F L Pulse Rate 82 74 Respiratory 16 16 Rate Blood Pressure 162/107 122/81 O2 Sat by Pulse 96 99 Oximetry Medical Decision Making - Medical Decision Making Patient is a 41-year-old female presents emergency room for evaluation of bladder pain. Patient states she is feeling a lot better after medications given. Labs showed no significant findings. Urinalysis is suspicious for contamination versus urinary tract infection. Patient's symptoms do correlate with cystitis. Will treat patient for urinary tract infection and culture urine. Patient states she understands everything that was discussed with her. Return parameters discussed. Case discussed with Dr. Hamlin. - Lab Data Result diagrams: 06/22/16 13:21 06/22/16 13:21 Lab Results 06/22/16 06/22/16 06/22/16 Range/Units 11:45 13:21 13:21 WBC 7.3 (3.8-10.6) k/uL RBC 4.66 (3.80-5.40) m/uL Hgb 13.6 (11.4-16.0) gm/dL Hct 40.4 (34.0-46.0) % MCV 86.6 (80.0-100.0) fL MCH 29.2 (25.0-35.0) pg MCHC 33.7 (31.0-37.0) g/dL RDW 13.3 (11.5-15.5) % Plt Count 382 (150-450) k/uL Neutrophils % 52 % Lymphocytes % 34 % Monocytes % 6 % Eosinophils % 5 % Basophils % 1 % Neutrophils # 3.8 (1.3-7.7) k/uL Lymphocytes # 2.5 (1.0-4.8) k/uL Monocytes # 0.4 (0-1.0) k/uL Eosinophils # 0.4 (0-0.7) k/uL Basophils # 0.1 (0-0.2) k/uL Sodium 140 (137-145) mmol/L Potassium 4.2 (3.5-5.1) mmol/L Chloride 109 H (98-107) mmol/L Carbon Dioxide 22 (22-30) mmol/L Anion Gap 9 mmol/L BUN 14 (7-17) mg/dL Creatinine 0.77 (0.52-1.04) mg/dL Est GFR (MDRD) Af Amer >60 (>60 ml/min/1.73 sqM) Est GFR (MDRD) Non-Af >60 (>60 ml/min/1.73 sqM) Glucose 91 (74-99) mg/dL Calcium 9.1 (8.4-10.2) mg/dL Total Bilirubin 0.4 (0.2-1.3) mg/dL AST 26 (14-36) U/L ALT 35 (9-52) U/L Alkaline Phosphatase 86 (38-126) U/L Total Protein 7.1 (6.3-8.2) g/dL Albumin 4.2 (3.5-5.0) g/dL Urine Color Yellow Urine Appearance Cloudy H (Clear) Urine pH 6.5 (5.0-8.0) Ur Specific [place] 1.013 (1.001-1.035) Urine Protein Negative (Negative) Urine Glucose (UA) Negative (Negative) Urine Ketones Negative (Negative) Urine Blood Small H (Negative) Urine Nitrite Negative (Negative) Urine Bilirubin Negative (Negative) Urine Urobilinogen <2.0 (<2.0) mg/dL Ur Leukocyte Esterase Large H (Negative) Urine RBC 7 H (0-5) /hpf Urine WBC 9 H (0-5) /hpf Ur Squamous Epith Cells 5 H (0-4) /hpf Urine Bacteria Occasional H (None) /hpf Urine Mucus Rare H (None) /hpf Disposition Clinical Impression: Cystitis Disposition: HOME SELF-CARE Condition: Good Instructions: Urinary Tract Infection in Women (ED), Pelvic Pain in Women (ED) Additional Instructions: Take antibiotic as directed. 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 If any new symptom arises or symptoms worsen, return to ER as soon as possible. Prescriptions: Nitrofurantoin Monohyd/M-Cryst [Macrobid] 100 mg PO Q12HR 7 Days Referrals: Satish Amaya DO [Primary Care Provider] - 1-2 days Time of Disposition: 14:07
[2016-06-22 13:39] LABS: Basophils # (A) 0.1 k/uL (0-0.2); Basophils % (A) 1 %; CH 30.2; Eosinophils # (A) 0.4 k/uL (0-0.7); Eosinophils % (A) 5 %; HCT 40.4 % (34.0-46.0); HDW 2.85; HGB 13.6 gm/dL (11.4-16.0); Luc # (Auto) 0.16; Luc % (Auto) 2; Lymphocytes # (A) 2.5 k/uL (1.0-4.8); Lymphocytes % (A) 34 %; MCH 29.2 pg (25.0-35.0); MCHC 33.7 g/dL (31.0-37.0); MCV 86.6 fL (80.0-100.0); Monocytes # (A) 0.4 k/uL (0-1.0); Monocytes % (A) 6 %; Neutrophils # (A) 3.8 k/uL (1.3-7.7); Neutrophils % (A) 52 %; RBC 4.66 m/uL (3.80-5.40); RDW 13.3 % (11.5-15.5); WBC 7.3 k/uL (3.8-10.6); WBC (Perox) 7.65
[2016-06-22 13:50] LABS: ALT 35 U/L (9-52); AST 26 U/L (14-36); Alkaline Phosphatase 86 U/L (38-126); Anion Gap 9 mmol/L; Blood Urea Nitrogen 14 mg/dL (7-17); Calcium 9.1 mg/dL (8.4-10.2); Carbon Dioxide 22 mmol/L (22-30); Chloride 109 mmol/L (98-107); Glucose 91 mg/dL (74-99); Non-African American GFR(MDRD) >60 (>60 ml/min/1.73 sqM); Potassium 4.2 mmol/L (3.5-5.1); Sodium 140 mmol/L (137-145); Total Bilirubin 0.4 mg/dL (0.2-1.3); Total Protein 7.1 g/dL (6.3-8.2)
[2016-06-22] MEDS ORDERED: NITROFURANTOIN MONOHYD/M-CRYST 100 MG CAP PO STA (14:06)
[2016-06-22 14:42] VITALS: BP 122/81; PULSE 74
== END 2016-06-22 14:40 | disposition home or self-care (01) ==
LOC: EC 10:58
DX: N30.90 Cystitis, unspecified without hematuria (principal); F31.9 Bipolar disorder, unspecified; Z90.49 Acquired absence of other specified parts of digestive tract; Z88.8 Allergy status to other drugs, medicaments and biological substances; Z79.899 Other long term (current) drug therapy
CPT/HCPCS: 99284; 96374; 96375; 36415; 80053; 85025; 81001; J2405; J1170

== ENCOUNTER 2017-04-10 04:51 | Emergency (ER) | payer OTHER ==
[2017-04-10 04:59] VITALS: RESP 20
[2017-04-10] MEDS ORDERED: DIAZEPAM 5 MG/ML 2 ML INJ IM ONE (05:29)
[2017-04-10] MEDS ORDERED: KETOROLAC 60 MG/2 ML VIAL IM STA (05:29)
--- NOTE | 2017-04-10 05:35 | ED ---
Back Pain HPI - General Chief Complaint: Back Pain/Injury Stated Complaint: back pain Time Seen by Provider: 04/10/17 05:14 Source: patient Limitations: no limitations - History of Present Illness Initial Comments: This patient is a 41-year-old woman who presents with complaint of left lower back pain. She states that this is been going on for approximately 2 weeks. She notes that the pain is severe anytime she tries to go from standing to seated position or vice versa. When she is in position the back pain is mostly gone. Patient denies any radiation of the pain. There is no abdominal pain. She has not had any change in bladder or bowel function. No saddle anesthesia. No weakness or numbness of the extremities MD Complaint: back pain Onset/Timin -: week(s) Place: home Radiation: none Severity: severe Quality: sharp Consistency: intermittent Improves With: immobilization Worsens With: movement Associated Symptoms: denies other symptoms Treatments Prior to Arrival: cold therapy, NSAIDS - Related Data Home Medications Medication Instructions Recorded Confirmed Armodafinil [Nuvigil] 375 mg PO DAILY 07/19/13 04/10/17 lamoTRIgine [LaMICtal] 200 mg PO BID 07/19/13 04/10/17 Ibuprofen [Motrin] 600 mg PO Q6HR PRN 02/23/16 04/10/17 hydrOXYzine PAMOATE [Vistaril] 25 mg PO DAILY PRN 02/23/16 04/10/17 Lurasidone [Latuda] 80 mg PO HS 06/22/16 04/10/17 Previous Rx's Medication Instructions Recorded Diazepam [Valium] 5 mg PO Q8H PRN #20 tab 04/10/17 Naproxen Sodium [Naproxen Sodium 500 mg PO DAILY PRN #20 tab 04/10/17 ER] Allergies Allergy/AdvReac Type Severity Reaction Status Date / Time phenazopyridine HCl Allergy Severe rash Verified 06/22/16 11:01 [From Pyridium] face,arms & [id number] never to have again Review of Systems ROS Statement: Those systems with pertinent positive or pertinent negative responses have been documented in the HPI. ROS Other: All systems not noted in ROS Statement are negative. Constitutional: Denies: fever, chills Respiratory: Denies: cough, dyspnea Cardiovascular: Denies: chest pain, edema Gastrointestinal: Denies: abdominal pain, vomiting, diarrhea Genitourinary: Denies: dysuria, frequency, hematuria Musculoskeletal: Reports: as per HPI, back pain Skin: Denies: rash Neurological: Denies: weakness, numbness, paresthesias Past Medical History Past Medical History: Sleep Apnea/CPAP/BIPAP Additional Past Medical History / Comment(s): NARCOLEPSY- CONTROLLED WITH MEDS, HEMORRHOIDS- IN ER 10/09/14 FOR PAIN-WAS LANCED AND SENT HOME-SEE ER NOTES-HAS HAD THROMBOSED HEMORRHOIDS X 2 BEFORE, OCCASIONAL DIARRHEA, HAS C-PAP BUT IS NOT USING @ THIS TIME History of Any Multi-Drug Resistant Organisms: None Reported Past Surgical History: Cholecystectomy, Tubal Ligation Additional Past Surgical History / Comment(s): laparoscopy, hemmorhoidectomy Past Anesthesia/Blood Transfusion Reactions: No Reported Reaction Additional Past Anesthesia/Blood Transfusion Reaction / Comment(s): difficulty coming out of anethesia, advised to stay overnight for observation. pt states uncontrollable shaking. Past Psychological History: Anxiety, Bipolar, Depression Smoking Status: Never smoker Past Alcohol Use History: None Reported Past Drug Use History: None Reported - Past Family History Father History Unknown: Yes Mother Family Medical History: No Reported History General Exam Limitations: no limitations General appearance: alert, in no apparent distress Head exam: Present: atraumatic, normocephalic GI/Abdominal exam: Present: soft. Absent: distended, tenderness, guarding, rebound, rigid, mass, pulsatile mass Extremities exam: Present: normal inspection, normal capillary refill. Absent: pedal edema, calf tenderness Back exam: Present: paraspinal tenderness (Left). Absent: CVA tenderness (R), CVA tenderness (L), vertebral tenderness, rash noted Neurological exam: Present: alert, reflexes normal. Absent: motor sensory deficit Skin exam: Present: warm, dry, intact, normal color. Absent: rash Course Vital Signs 04/10/17 04:54 Temperature 98.0 F Pulse Rate 61 Respiratory 20 Rate Blood Pressure 134/77 O2 Sat by Pulse 99 Oximetry Disposition Clinical Impression: Mechanical back pain Disposition: HOME SELF-CARE Condition: Good Instructions: Acute Low Back Pain (ED) Prescriptions: Diazepam [Valium] 5 mg PO Q8H PRN #20 tab PRN Reason: Spasms Naproxen Sodium [Naproxen Sodium ER] 500 mg PO DAILY PRN #20 tab PRN Reason: Pain Referrals: Satish Amaya DO [Primary Care Provider] - 1-2 days
[2017-04-10 07:14] VITALS: BP 135/62; PULSE 71; TEMP 97.7
== END 2017-04-10 07:12 | disposition home or self-care (01) ==
LOC: EC 04:51
DX: M54.5 Low back pain (principal); F32.9 Major depressive disorder, single episode, unspecified; G47.30 Sleep apnea, unspecified; Z99.89 Dependence on other enabling machines and devices; Z79.899 Other long term (current) drug therapy; Z88.1 Allergy status to other antibiotic agents
CPT/HCPCS: 99283; 96372 ×2; J3360; J1885

== ENCOUNTER 2017-10-13 13:17 | Emergency (ER) | payer OTHER ==
[2017-10-13 13:29] VITALS: BP 140/85; PULSE 67; RESP 18; TEMP 98.7
--- NOTE | 2017-10-13 14:31 | XR ---
EXAMINATION TYPE: XR knee complete RT DATE OF EXAM: 10/13/2017 COMPARISON: NONE HISTORY: Knee pain TECHNIQUE: 3 views FINDINGS: There is no fracture nor dislocation. Joint spaces are normal. There is no sign of knee alison nt effusion. IMPRESSION: Negative right knee exam.
--- NOTE | 2017-10-13 14:48 | ED ---
General Adult HPI - General Chief complaint: Extremity Injury, Lower Stated complaint: right knee pain Time Seen by Provider: 10/13/17 13:39 Source: patient, RN notes reviewed Mode of arrival: ambulatory Limitations: no limitations - History of Present Illness Initial comments: 42-year-old female presents to the emergency department with a chief complaint of right knee pain. Patient was organizing herself at home. She states that she got up and felt some knee pain. She proceeded to go shopping and had more knee pain and when she tried to get into the car she twisted her knee causing increased pain. She states she is able to bend and straighten the knee however it is discomforting. She denies any history of knee issues in the past. She denies any fever or chills. She denies any direct fall or trauma that she is aware of. She was concerned due to the pain in the limited motion so she thought that she should be evaluated.Patient denies any recent fever, chills, shortness of breath, chest pain, back pain, abdominal pain, nausea vomiting, numbness or tingling, dysuria or hematuria, constipation or diarrhea, headaches or visual changes, or any other current symptoms. - Related Data Home Medications Medication Instructions Recorded Confirmed Armodafinil [Nuvigil] 375 mg PO DAILY 07/19/13 04/10/17 lamoTRIgine [LaMICtal] 200 mg PO BID 07/19/13 04/10/17 Ibuprofen [Motrin] 600 mg PO Q6HR PRN 02/23/16 04/10/17 hydrOXYzine PAMOATE [Vistaril] 25 mg PO DAILY PRN 02/23/16 04/10/17 Lurasidone [Latuda] 80 mg PO HS 06/22/16 04/10/17 Previous Rx's Medication Instructions Recorded Diazepam [Valium] 5 mg PO Q8H PRN #20 tab 04/10/17 Naproxen Sodium [Naproxen Sodium 500 mg PO DAILY PRN #20 tab 04/10/17 ER] Allergies Allergy/AdvReac Type Severity Reaction Status Date / Time phenazopyridine HCl Allergy Severe rash Verified 10/13/17 13:29 [From Pyridium] face,arms & [id number] never to have again Review of Systems ROS Statement: Those systems with pertinent positive or pertinent negative responses have been documented in the HPI. ROS Other: All systems not noted in ROS Statement are negative. Past Medical History Past Medical History: Sleep Apnea/CPAP/BIPAP Additional Past Medical History / Comment(s): NARCOLEPSY- CONTROLLED WITH MEDS, HEMORRHOIDS- IN ER 10/09/14 FOR PAIN-WAS LANCED AND SENT HOME-SEE ER NOTES-HAS HAD THROMBOSED HEMORRHOIDS X 2 BEFORE, OCCASIONAL DIARRHEA, HAS C-PAP BUT IS NOT USING @ THIS TIME History of Any Multi-Drug Resistant Organisms: None Reported Past Surgical History: Cholecystectomy, Tubal Ligation Additional Past Surgical History / Comment(s): laparoscopy, hemmorhoidectomy Past Anesthesia/Blood Transfusion Reactions: No Reported Reaction Additional Past Anesthesia/Blood Transfusion Reaction / Comment(s): difficulty coming out of anethesia, advised to stay overnight for observation. pt states uncontrollable shaking. Past Psychological History: Anxiety, Bipolar, Depression Smoking Status: Never smoker Past Alcohol Use History: None Reported Past Drug Use History: None Reported - Past Family History Father History Unknown: Yes Mother Family Medical History: No Reported History General Exam - General Exam Comments Initial Comments: General: The patient is awake and alert, in no distress, and does not appear acutely ill. Neck: The neck is supple, there is no tenderness. Cardiovascular: There is a regular rate and rhythm. No murmur, rub or gallop is appreciated. Respiratory: Lungs are clear to auscultation, respirations are non-labored, breath sounds are equal. No wheezes, stridor, rales, or rhonchi. Musculoskeletal: Sensation intact with 2+ pulses throughout the right lower extremity. Full range motion of right ankle. Full range of motion of right knee with some medial tenderness. No increased swelling or effusion noted. No redness or erythema. Neurological: CN II-XII intact, There are no obvious motor or sensory deficits. Coordination appears grossly intact. Speech is normal. Skin: Skin is warm and dry and no rashes or lesions are noted. Psychiatric: Normal mood and affect. Limitations: no limitations Course Vital Signs 10/13/17 13:27 Temperature 98.7 F Pulse Rate 67 Respiratory 18 Rate Blood Pressure 140/85 O2 Sat by Pulse 99 Oximetry Medical Decision Making - Medical Decision Making 42-year-old female presents to the emergency department with a chief complaint of right knee pain. This time x-rays reviewed and negative. We discussed follow-up with or so. We discussed return parameters all questions. Patient stated that she understood and she is agreement this plan. All questions have been answered. She will be discharged. - Radiology Data Radiology results: report reviewed, image reviewed Disposition Clinical Impression: Right knee sprain Disposition: HOME SELF-CARE Condition: Stable Instructions: Knee Sprain (ED) Additional Instructions: Please use medication as discussed. Please follow up with family doctor if symptoms have not improved over the next two days. Please return to the emergency room if your symptoms increase or worsen or for any other concerns. Is patient prescribed a controlled substance at d/c from ED?: No Referrals: Hill Rodas MD [STAFF PHYSICIAN] - 1-2 days Time of Disposition: 14:48
== END 2017-10-13 15:00 | disposition home or self-care (01) ==
LOC: EC 13:17
DX: S83.91XA Sprain of unspecified site of right knee, initial encounter (principal); F31.9 Bipolar disorder, unspecified; G47.30 Sleep apnea, unspecified; Z99.89 Dependence on other enabling machines and devices; Z79.899 Other long term (current) drug therapy; Z88.1 Allergy status to other antibiotic agents; X50.1XXA Overexertion from prolonged static or awkward postures, initial encounter
CPT/HCPCS: 99283; 73562; L1830

== ENCOUNTER → 2018-01-17 | Outpatient (CLI) | payer OTHER ==
[2018-01-17 17:50] LABS: Vitamin D 25 Hydroxy 32.8 ng/mL (30.0-100.0)
[2018-01-17 17:53] LABS: Calcium 9.6 mg/dL (8.7-10.3); LDL Cholesterol,Calculated 171.2 mg/dL (0.0-131.0); VLDL Calculation 24.8 mg/dL (5.00-40.00)
[2018-01-17 18:00] LABS: T4, Free (Free Thyroxine) 1.1 ng/dL (0.80-1.80)
[2018-01-20 06:26] LABS: Vitamin B1 95 ug/L (38-122)
[2018-01-20 07:52] LABS: Vitamin A 68 ug/dL (38-106)
== END | disposition home or self-care (01) ==
LOC: LABWHC1 08:09
PROVIDERS: ATTEND Family Medicine
DX: Z00.00 Encounter for general adult medical examination without abnormal findings (principal); L60.9 Nail disorder, unspecified; N93.9 Abnormal uterine and vaginal bleeding, unspecified
CPT/HCPCS: 36415; 80061; 82306; 82310; 82607; 82947; 84425; 84439; 84443; 84590

== ENCOUNTER → 2018-01-27 | Outpatient (CLI) | payer OTHER ==
--- NOTE | 2018-01-27 12:58 | XR ---
EXAMINATION TYPE: XR lumbar spine 2 or 3V DATE OF EXAM: 01/27/2018 CLINICAL HISTORY: Back pain for approximately 9 months TECHNIQUE: Frontal and lateral views of the lumbar spine were obtained. COMPARISON: 07/19/2013 FINDINGS: There are 5 lumbar type vertebral bodies identified. Small anterior osteophytes are seen a t L2-L3, minimally advanced from the prior. The lumbar spine shows satisfactory alignment without ev idence of acute fracture or dislocation. Vertebral body heights and disk space heights are within nor mal limits. The overlying soft tissue appears unremarkable. Cholecystectomy clips are noted within th e right upper quadrant. IMPRESSION: No acute fracture or dislocation is seen in the lumbar spine. Mild degenerative disc dis ease at L2-L3, minimally advanced from the prior.
== END | disposition home or self-care (01) ==
LOC: RADXRMAIN 12:04
PROVIDERS: ATTEND Family Medicine
DX: M51.36 Other intervertebral disc degeneration, lumbar region (principal)
CPT/HCPCS: 72100

== ENCOUNTER → 2019-05-20 | Outpatient (CLI) | payer OTHER ==
--- NOTE | 2019-05-20 08:55 | XR ---
EXAMINATION TYPE: XR chest 2V DATE OF EXAM: 05/20/2019 COMPARISON: 02/12/2013 INDICATION: Chest pain TECHNIQUE: Frontal and lateral views of the chest are obtained. FINDINGS: The heart size is normal. The pulmonary vasculature is normal. The lungs are clear. Retrosternal space appears unremarkable. IMPRESSION: 1. No acute pulmonary process.
== END | disposition home or self-care (01) ==
LOC: RADXRMAIN 08:18
PROVIDERS: ATTEND Family Medicine
DX: R07.89 Other chest pain (principal)
CPT/HCPCS: 71046

== ENCOUNTER 2020-03-03 16:21 | Emergency (ER) | payer OTHER ==
[2020-03-03 16:28] VITALS: RESP 18
[2020-03-03] MEDS ORDERED: KETOROLAC 15 MG/ML 1 ML VIAL IVP STA (16:51)
[2020-03-03] MEDS ORDERED: SODIUM CHLORIDE 0.9% 500 ML 500 ML IV STA (16:51)
--- NOTE | 2020-03-03 17:03 | ED ---
General Adult HPI - General Chief complaint: Abdominal Pain Stated complaint: poss appendicitis Time Seen by Provider: 03/03/20 16:25 Source: patient, RN notes reviewed, old records reviewed Mode of arrival: ambulatory Limitations: no limitations - History of Present Illness Initial comments: This is a 44-year-old female presents emergency department with past history of kidney stones. Patient comes in stating that starting last night she had sudden onset of right-sided back pain radiating around to her right groin area. Patient states it is been constant but it is a cramping sensation. Patient denies any vomiting but has had some nausea. Patient denies diarrhea. Patient denies any dysuria hematuria urinary frequency. Patient states it doesn't remind her of her kidney stone. Patient denies any recent fever chills or cough per patient denies any chest pain difficulty breathing. Patient states movement does not seem to change the course of the pain. Patient states she is 2 weeks post menstrual cycle. - Related Data Home Medications Medication Instructions Recorded Confirmed armodafiniL [Nuvigil] 375 mg PO DAILY 07/19/13 03/03/20 hydrOXYzine pamoate [Vistaril] 25 - 50 mg PO TID PRN 02/23/16 03/03/20 Lurasidone [Latuda] 80 mg PO HS 06/22/16 03/03/20 Atorvastatin [Lipitor] 20 mg PO HS 03/03/20 03/03/20 Cholecalciferol [Vitamin D3 (25 25 mcg PO DAILY 03/03/20 03/03/20 Mcg = 1000 Iu)] Cranberry Fruit Extract [Cranberry] 500 mg PO DAILY 03/03/20 03/03/20 Lisinopril-Hctz 10-12.5 mg 1 tab PO DAILY 03/03/20 03/03/20 [Zestoretic 10-12.5] Multivitamins, Thera [Multivitamin 1 tab PO DAILY 03/03/20 03/03/20 (formulary)] [place]-3 Fatty Acids/Fish Oil [Fish 1 cap PO DAILY 03/03/20 03/03/20 Oil 1,000 mg Softgel] lamoTRIgine [LaMICtal] 100 mg PO HS 03/03/20 03/03/20 lamoTRIgine [LaMICtal] 200 mg PO BID 03/03/20 03/03/20 Allergies Allergy/AdvReac Type Severity Reaction Status Date / Time phenazopyridine HCl Allergy Severe rash Verified 03/03/20 17:42 [From Pyridium] face,arms & [id number] never to have again Review of Systems ROS Statement: Those systems with pertinent positive or pertinent negative responses have been documented in the HPI. ROS Other: All systems not noted in ROS Statement are negative. Past Medical History Past Medical History: Sleep Apnea/CPAP/BIPAP Additional Past Medical History / Comment(s): NARCOLEPSY- CONTROLLED WITH MEDS, HEMORRHOIDS- IN ER 10/09/14 FOR PAIN-WAS LANCED AND SENT HOME-SEE ER NOTES-HAS HAD THROMBOSED HEMORRHOIDS X 2 BEFORE, OCCASIONAL DIARRHEA, HAS C-PAP BUT IS NOT USING @ THIS TIME History of Any Multi-Drug Resistant Organisms: None Reported Past Surgical History: Cholecystectomy, Tubal Ligation Additional Past Surgical History / Comment(s): laparoscopy, hemmorhoidectomy Past Anesthesia/Blood Transfusion Reactions: No Reported Reaction Additional Past Anesthesia/Blood Transfusion Reaction / Comment(s): difficulty coming out of anethesia, advised to stay overnight for observation. pt states uncontrollable shaking. Past Psychological History: Anxiety, Bipolar, Depression Smoking Status: Never smoker Past Alcohol Use History: None Reported Past Drug Use History: None Reported - Past Family History Father History Unknown: Yes Mother Family Medical History: No Reported History General Exam - General Exam Comments Initial Comments: GENERAL: Patient is well-developed and well-nourished. Patient is nontoxic and well-h ydrated and is in mild distress. ENT: Neck is soft and supple. No significant lymphadenopathy is noted. Oropharynx is clear. Moist mucous membranes. Neck has full range of motion without eliciting any pain. EYES: The sclera were anicteric and conjunctiva were pink and moist. Extraocular movements were intact and pupils were equal round and reactive to light. Eyelids were unremarkable. PULMONARY: Unlabored respirations. Good breath sounds bilaterally. No audible rales rhonchi or wheezing was noted. CARDIOVASCULAR: There is a regular rate and rhythm without any murmurs gallops or rubs. ABDOMEN: Patient's abdomen was slightly tender in the right lower quadrant. SKIN: Skin is clear with no lesions or rashes and otherwise unremarkable. NEUROLOGIC: Patient is alert and oriented x3. Cranial nerves II through XII are grossly intact. Motor and sensory are also intact. Normal speech, volume and content. Symmetrical smile. MUSCULOSKELETAL: Normal extremities with adequate strength and full range of motion. No lower extremity swelling or edema. No calf tenderness. LYMPHATICS: No significant lymphadenopathy is noted PSYCHIATRIC: Normal psychiatric evaluation. Limitations: no limitations Course Vital Signs 03/03/20 03/03/20 03/03/20 16:23 16:59 18:04 Temperature 99.1 F 98.6 F Pulse Rate 72 63 63 Respiratory 18 18 18 Rate Blood Pressure 134/81 146/88 132/65 O2 Sat by Pulse 96 98 100 Oximetry 03/03/20 19:33 Temperature 97.9 F Pulse Rate 69 Respiratory 18 Rate Blood Pressure 142/72 O2 Sat by Pulse 99 Oximetry Medical Decision Making - Medical Decision Making CT of the abdomen and pelvis shows no acute abnormality. I spoke with Dr. fung to review the study any again insisted there is no abnormality. I went back into reevaluate the patient and she told me she was completely pain-free and wanted to go home. was in the room and he was in agreement - Lab Data Result diagrams: 03/03/20 16:58 03/03/20 16:58 Lab Results 03/03/20 03/03/20 03/03/20 Range/Units 16:58 16:58 16:58 WBC 6.6 (3.8-10.6) k/uL RBC 4.49 (3.80-5.40) m/uL Hgb 13.5 (11.4-16.0) gm/dL Hct 39.0 (34.0-46.0) % MCV 86.7 (80.0-100.0) fL MCH 30.0 (25.0-35.0) pg MCHC 34.6 (31.0-37.0) g/dL RDW 12.8 (11.5-15.5) % Plt Count 331 (150-450) k/uL MPV 6.3 Neutrophils % 48 % Lymphocytes % 38 % Monocytes % 6 % Eosinophils % 6 % Basophils % 1 % Neutrophils # 3.2 (1.3-7.7) k/uL Lymphocytes # 2.5 (1.0-4.8) k/uL Monocytes # 0.4 (0-1.0) k/uL Eosinophils # 0.4 (0-0.7) k/uL Basophils # 0.1 (0-0.2) k/uL Sodium 140 (137-145) mmol/L Potassium 4.0 (3.5-5.1) mmol/L Chloride 107 (98-107) mmol/L Carbon Dioxide 26 (22-30) mmol/L Anion Gap 7 mmol/L BUN 16 (7-17) mg/dL Creatinine 0.81 (0.52-1.04) mg/dL Est GFR (CKD-EPI)AfAm >90 (>60 ml/min/1.73 sqM) Est GFR (CKD-EPI)NonAf 88 (>60 ml/min/1.73 sqM) Glucose 97 (74-99) mg/dL Calcium 9.9 (8.4-10.2) mg/dL Total Bilirubin 0.3 (0.2-1.3) mg/dL AST 41 H (14-36) U/L ALT 42 H (4-34) U/L Alkaline Phosphatase 70 (38-126) U/L Total Protein 6.8 (6.3-8.2) g/dL Albumin 4.2 (3.5-5.0) g/dL Amylase 49 (30-110) U/L Lipase 65 (23-300) U/L Urine Color Yellow Urine Appearance Cloudy H (Clear) Urine pH 5.5 (5.0-8.0) Ur Specific [place] 1.022 (1.001-1.035) Urine Protein Negative (Negative) Urine Glucose (UA) Negative (Negative) Urine Ketones Negative (Negative) Urine Blood Moderate H (Negative) Urine Nitrite Negative (Negative) Urine Bilirubin Negative (Negative) Urine Urobilinogen <2.0 (<2.0) mg/dL Ur Leukocyte Esterase Large H (Negative) Urine RBC 4 (0-5) /hpf Urine WBC 4 (0-5) /hpf Ur Squamous Epith Cells 4 (0-4) /hpf Urine Mucus Rare H (None) /hpf Disposition Clinical Impression: Abdominal pain Disposition: HOME SELF-CARE Condition: Good Instructions (If sedation given, give patient instructions): Abdominal Pain (ED) Is patient prescribed a controlled substance at d/c from ED?: No Referrals: Satish Amaya DO [Primary Care Provider] - 1-2 days Time of Disposition: 19:45
[2020-03-03] MEDS ORDERED: ONDANSETRON 4 MG/2 ML VIAL IVP STA (17:06)
[2020-03-03 17:10] LABS: Basophils # (A) 0.1 k/uL (0-0.2); Basophils % (A) 1 %; Eosinophils # (A) 0.4 k/uL (0-0.7); Eosinophils % (A) 6 %; HGB 13.5 gm/dL (11.4-16.0); Lymphocytes # (A) 2.5 k/uL (1.0-4.8); Lymphocytes % (A) 38 %; MCHC 34.6 g/dL (31.0-37.0); MCV 86.7 fL (80.0-100.0); Mean Platelet Volume 6.3; Monocytes # (A) 0.4 k/uL (0-1.0); Monocytes % (A) 6 %; Neutrophils # (A) 3.2 k/uL (1.3-7.7); Neutrophils % (A) 48 %; Platelet Count 331 k/uL (150-450); RBC 4.49 m/uL (3.80-5.40); RDW 12.8 % (11.5-15.5); WBC 6.6 k/uL (3.8-10.6)
[2020-03-03 17:23] LABS: ALT 42 U/L (4-34); AST 41 U/L (14-36); African American GFR (CKD) >90 (>60 ml/min/1.73 sqM); Albumin 4.2 g/dL (3.5-5.0); Alkaline Phosphatase 70 U/L (38-126); Amylase 49 U/L (30-110); Anion Gap 7 mmol/L; Blood Urea Nitrogen 16 mg/dL (7-17); Calcium 9.9 mg/dL (8.4-10.2); Carbon Dioxide 26 mmol/L (22-30); Chloride 107 mmol/L (98-107); Glucose 97 mg/dL (74-99); Lipase 65 U/L (23-300); Non-African American GFR(CKD) 88 (>60 ml/min/1.73 sqM); Sodium 140 mmol/L (137-145); Total Bilirubin 0.3 mg/dL (0.2-1.3); Total Protein 6.8 g/dL (6.3-8.2)
[2020-03-03 17:35] LABS: Appearance,Urine Cloudy (Clear); Bilirubin,Urine Negative (Negative); Blood,Urine Moderate (Negative); Color,Urine Yellow; Glucose,Urine (UA) Negative (Negative); Ketones,Urine Negative (Negative); Leukocyte Esterase,Urine Large (Negative); Mucus,Urine Rare /hpf; Nitrite,Urine Negative (Negative); PH, Urine 5.5 (5.0-8.0); Protein,Urine Negative (Negative); RBC,Urine 4 /hpf (0-5); Specific Gravity,Urine 1.022 (1.001-1.035); Squamous Epithelial Cell,Urine 4 /hpf (0-4); Urobilinogen,Urine <2.0 mg/dL (<2.0); WBC,Urine 4 /hpf (0-5)
[2020-03-03] MEDS ORDERED: HYDROmorphone 0.5 MG/0.5 ML SYRINGE IVP STA (18:12)
--- NOTE | 2020-03-03 19:00 | CT ---
EXAMINATION TYPE: CT abdomen pelvis wo con DATE OF EXAM: 03/03/2020 COMPARISON: 02/23/2016 HISTORY: Back pain. CT DLP: 550.3 mGycm Automated exposure control for dose reduction was used. Images were obtained from the diaphragm to the floor the pelvis with no contrast. Lung bases are clear. There is no pleural effusion. Heart size is normal. There is no pericardial eff usion. There is small hiatal hernia. Stomach is intact. There are clips from cholecystectomy. Liver s pleen pancreas appear intact. The bile ducts are not dilated. There is no adrenal mass. Kidneys have normal size. There is 4 mm calculus upper pole left kidney. Th ere is no hydronephrosis. The ureters are not dilated. I see no retroperitoneal adenopathy. Bladder d istends smoothly. Uterus appears normal. There are clips from tubal ligation. There is no inguinal he rnia. Uterus is anteverted. There is no evidence of pelvic mass. There is no free fluid in the pelvis . Appendix is posterior and appears normal. There is no mesenteric edema. There is no ascites or free a ir. There is no bowel obstruction. Lumbar vertebra have normal alignment. Posterior elements are intact. I see no compression fracture. Bony pelvis is intact. Hip joints are intact. IMPRESSION: Nonobstructing left renal calculus increased in size compared to old exam. No evidence of acute abdom en and pelvis. Normal appendix.
[2020-03-03 19:33] VITALS: BP 142/72; PULSE 69; TEMP 97.9
== END 2020-03-03 19:58 | disposition home or self-care (01) ==
LOC: EC 16:21
DX: R10.9 Unspecified abdominal pain (principal); G47.30 Sleep apnea, unspecified; F41.9 Anxiety disorder, unspecified; F32.9 Major depressive disorder, single episode, unspecified; G47.419 Narcolepsy without cataplexy; Z79.899 Other long term (current) drug therapy; Z88.6 Allergy status to analgesic agent; Z99.89 Dependence on other enabling machines and devices; Z98.51 Tubal ligation status; Z90.49 Acquired absence of other specified parts of digestive tract; Z87.442 Personal history of urinary calculi
CPT/HCPCS: 36415; 80053; 82150; 83690; 85025; 81001; 74176; 99285; 96374; 96375 ×2; 96361; J2405; J1885; J1170

== ENCOUNTER → 2020-09-28 | Outpatient (CLI) | payer OTHER | END | disposition home or self-care (01) | LOC: LABWHC1 15:10 | PROVIDERS: ATTEND Nurse Practitioner Family | DX: Z53.9 Procedure and treatment not carried out, unspecified reason (principal) ==

== ENCOUNTER 2020-09-29 00:46 | Emergency (ER) | payer OTHER ==
[2020-09-29] MEDS ORDERED: ACET/COD 300 MG/30 MG STARTER PACK 6 TAB BTL PO STA (02:37)
[2020-09-29] MEDS ORDERED: KETOROLAC 15 MG/ML 1 ML VIAL IM STA (02:37)
[2020-09-29] MEDS ORDERED: DICYCLOMINE 10 MG/ML 2 ML AMP IM STA (02:37)
--- NOTE | 2020-09-29 02:39 | ED ---
General Adult HPI - General Chief complaint: Urogenital Stated complaint: Hemorrhoid Time Seen by Provider: 09/29/20 01:40 Source: patient Mode of arrival: ambulatory - History of Present Illness Initial comments: 45 year-old female patient presents to the emergency department today for evaluation of rectal pain related to hemorrhoids. Patient states she has had diarrhea for the last 2 weeks. States that she generally gets problems with hemorrhoids that she has diarrhea for any length of time. She denies any fever or chills. States she does have abdominal cramping. States she has been doing sitz baths, Preparation H, taking Tylenol. States the pain seemed to be worsening tonight she is unable to sleep. Denies any significant bleeding from the area. - Related Data Home Medications Medication Instructions Recorded Confirmed armodafiniL [Nuvigil] 375 mg PO DAILY 07/19/13 03/03/20 hydrOXYzine pamoate [Vistaril] 25 - 50 mg PO TID PRN 02/23/16 03/03/20 Lurasidone [Latuda] 80 mg PO HS 06/22/16 03/03/20 Atorvastatin [Lipitor] 20 mg PO HS 03/03/20 03/03/20 Cholecalciferol [Vitamin D3 (25 25 mcg PO DAILY 03/03/20 03/03/20 Mcg = 1000 Iu)] Cranberry Fruit Extract [Cranberry] 500 mg PO DAILY 03/03/20 03/03/20 Lisinopril-Hctz 10-12.5 mg 1 tab PO DAILY 03/03/20 03/03/20 [Zestoretic 10-12.5] Multivitamins, Thera [Multivitamin 1 tab PO DAILY 03/03/20 03/03/20 (formulary)] [place]-3 Fatty Acids/Fish Oil [Fish 1 cap PO DAILY 03/03/20 03/03/20 Oil 1,000 mg Softgel] lamoTRIgine [LaMICtal] 100 mg PO HS 03/03/20 03/03/20 lamoTRIgine [LaMICtal] 200 mg PO BID 03/03/20 03/03/20 Previous Rx's Medication Instructions Recorded Dicyclomine [Bentyl] 20 mg PO QID #12 tablet 09/29/20 HYDROcodone/APAP 5-325MG [[place] 5] 1 each PO Q6HR PRN #12 tab 09/29/20 Allergies Allergy/AdvReac Type Severity Reaction Status Date / Time phenazopyridine HCl Allergy Severe rash Verified 09/29/20 00:52 [From Pyridium] face,arms & [id number] never to have again Review of Systems ROS Statement: Those systems with pertinent positive or pertinent negative responses have been documented in the HPI. ROS Other: All systems not noted in ROS Statement are negative. Past Medical History Past Medical History: Sleep Apnea/CPAP/BIPAP Additional Past Medical History / Comment(s): NARCOLEPSY- CONTROLLED WITH MEDS, HEMORRHOIDS- IN ER 10/09/14 FOR PAIN-WAS LANCED AND SENT HOME-SEE ER NOTES-HAS HAD THROMBOSED HEMORRHOIDS X 2 BEFORE, OCCASIONAL DIARRHEA, HAS C-PAP BUT IS NOT USING @ THIS TIME History of Any Multi-Drug Resistant Organisms: None Reported Past Surgical History: Cholecystectomy, Tubal Ligation Additional Past Surgical History / Comment(s): laparoscopy, hemmorhoidectomy Past Anesthesia/Blood Transfusion Reactions: No Reported Reaction Additional Past Anesthesia/Blood Transfusion Reaction / Comment(s): difficulty coming out of anethesia, advised to stay overnight for observation. pt states uncontrollable shaking. Past Psychological History: Anxiety, Bipolar, Depression Smoking Status: Never smoker Past Alcohol Use History: None Reported Past Drug Use History: None Reported - Past Family History Father History Unknown: Yes Mother Family Medical History: No Reported History General Exam General appearance: alert, in no apparent distress, other (This is a well- developed, well-nourished adult female patient in no acute distress. V/S are T 97.8F, pulse 67, respirations 16, blood pressure 144/84, pulse ox 98% on room air.) ENT exam: Present: normal exam, normal oropharynx, mucous membranes moist Respiratory exam: Present: normal lung sounds bilaterally. Absent: respiratory distress, wheezes, rales, rhonchi, stridor Cardiovascular Exam: Present: regular rate, normal rhythm, normal heart sounds. Absent: systolic murmur, diastolic murmur, rubs, gallop, clicks Rectal exam: Present: hemorrhoids (Thrombosed hemorrhoid) Neurological exam: Present: alert, oriented X3, CN II-XII intact Psychiatric exam: Present: normal affect, normal mood Skin exam: Present: warm, dry, intact, normal color. Absent: rash Course Vital Signs 09/29/20 00:52 Temperature 97.8 F Pulse Rate 67 Respiratory 16 Rate Blood Pressure 144/84 O2 Sat by Pulse 98 Oximetry Medical Decision Making - Medical Decision Making 45-year-old female patient presented to the emergency department today for evaluation of painful hemorrhoid. Physical examination did reveal evidence for thrombosed hemorrhoid. She is having diarrhea for the last couple of weeks. Abdomen soft and nontender. She is afebrile normal vital signs. She'll be discharged home with pain medication for symptom management. Instructed to continue Preparation H and sitz baths. She has called her doctor for referral to her general surgeon. She'll be given prescription for Bentyl to help manage symptoms of the diarrhea. Her primary care physician has sent stool cultures and C. diff culture and his medication as outpatient. Return parameters were discussed in detail. She verbalizes understanding and agrees with this plan. Case discussed with my attending is Dr. Hamlin. - Lab Data Lab Results 09/29/20 Range/Units 00:59 Coronavirus (PCR) Not Detected (Not Detectd) Disposition Clinical Impression: Thrombosed hemorrhoids Disposition: HOME SELF-CARE Condition: Good Instructions (If sedation given, give patient instructions): Thrombosed Hemorrhoid (ED) Additional Instructions: Take medications as directed. Continue warm sitz baths and application of preparation H. Follow up with your surgeon for further evaluation. Return to the emergency department for any new, worsening, or concerning symptoms. Prescriptions: Dicyclomine [Bentyl] 20 mg PO QID #12 tablet HYDROcodone/APAP 5-325MG [[place] 5] 1 each PO Q6HR PRN #12 tab PRN Reason: Pain Is patient prescribed a controlled substance at d/c from ED?: Yes When asked, does pt state using other controlled substances?: No If prescribed controlled substance>3 days was MAPS reviewed?: Prescribed <3 Days If opioid is for acute pain is fill amount 7 days or less?: Yes If Rx opioid, was Start Talking consent form obtained?: Yes Referrals: Satish Amaya DO [Primary Care Provider] - 1-2 days Time of Disposition: 02:39
[2020-09-29 03:20] VITALS: BP 132/78; PULSE 77; RESP 18; TEMP 7.2
== END 2020-09-29 03:17 | disposition home or self-care (01) ==
LOC: EC 00:46
DX: K64.5 Perianal venous thrombosis (principal); R19.7 Diarrhea, unspecified; R10.9 Unspecified abdominal pain; G47.30 Sleep apnea, unspecified; G47.419 Narcolepsy without cataplexy; F41.9 Anxiety disorder, unspecified; F31.9 Bipolar disorder, unspecified; Z20.822 Contact with and (suspected) exposure to COVID-19; Z87.19 Personal history of other diseases of the digestive system; Z79.899 Other long term (current) drug therapy; Z90.49 Acquired absence of other specified parts of digestive tract
CPT/HCPCS: 87635; 99284; 96372 ×2; J0500; J1885

== ENCOUNTER 2020-10-01 12:11 | Emergency (ER) | payer OTHER ==
[2020-10-01] MEDS ORDERED: SODIUM CHLORIDE 0.9% 1,000 ML IV STA (15:11)
--- NOTE | 2020-10-01 15:59 | ED ---
Abdominal Pain HPI - General Chief Complaint: Abdominal Pain Stated Complaint: prolapsed rectum Time Seen by Provider: 10/01/20 14:48 Source: patient, family Mode of arrival: ambulatory - History of Present Illness Initial Comments: 45-year-old female presents to emergency Department with a chief complaint of hemorrhoid. Patient reports history of hemorrhoids but she is also having diarrhea for approximately 2 weeks. States she was also here 2 days ago for the same chief complaint and was discharged from. Patient reports that she's noticed some bright red bleeding whenever she is wiping. She believes this is coming from her hemorrhoids. States it feels like there is a "blood clot" in the hemorrhoid. States this was not incised and drained when she was here most recently. She states the pain continues to persist. She is yet to see a general surgeon for this because it is the weekend. - Related Data Home Medications Medication Instructions Recorded Confirmed armodafiniL [Nuvigil] 375 mg PO DAILY 07/19/13 10/01/20 Lurasidone [Latuda] 80 mg PO HS 06/22/16 10/01/20 Atorvastatin [Lipitor] 20 mg PO HS 03/03/20 10/01/20 Lisinopril-Hctz 10-12.5 mg 1 tab PO DAILY 03/03/20 10/01/20 [Zestoretic 10-12.5] lamoTRIgine [LaMICtal] 100 mg PO HS 03/03/20 10/01/20 lamoTRIgine [LaMICtal] 200 mg PO BID 03/03/20 10/01/20 Cholecalciferol (Vitamin D3) 125 mcg PO DAILY 10/01/20 10/01/20 [Vitamin D3 (125 MCG = 5,000 IU)] Fish Oil/Dha/Epa [Fish Oil 1,200 1 cap PO DAILY 10/01/20 10/01/20 mg Fish Oil] HYDROcodone/APAP 5-325MG [[place] 5] 1 tab PO Q6HR PRN 10/01/20 10/01/20 Vilazodone HCl [Viibryd] 20 mg PO DAILY 10/01/20 10/01/20 cloNIDine HCL [Catapres] 0.1 mg PO HS 10/01/20 10/01/20 Allergies Allergy/AdvReac Type Severity Reaction Status Date / Time phenazopyridine HCl Allergy Severe rash Verified 10/01/20 15:59 [From Pyridium] face,arms & [id number] never to have again Review of Systems ROS Statement: Those systems with pertinent positive or pertinent negative responses have been documented in the HPI. ROS Other: All systems not noted in ROS Statement are negative. Past Medical History Past Medical History: Sleep Apnea/CPAP/BIPAP Additional Past Medical History / Comment(s): NARCOLEPSY- CONTROLLED WITH MEDS, HEMORRHOIDS- IN ER 10/09/14 FOR PAIN-WAS LANCED AND SENT HOME-SEE ER NOTES-HAS HAD THROMBOSED HEMORRHOIDS X 2 BEFORE, OCCASIONAL DIARRHEA, HAS C-PAP BUT IS NOT USING @ THIS TIME History of Any Multi-Drug Resistant Organisms: None Reported Past Surgical History: Cholecystectomy, Tubal Ligation Additional Past Surgical History / Comment(s): laparoscopy, hemmorhoidectomy Past Anesthesia/Blood Transfusion Reactions: No Reported Reaction Additional Past Anesthesia/Blood Transfusion Reaction / Comment(s): difficulty coming out of anethesia, advised to stay overnight for observation. pt states uncontrollable shaking. Past Psychological History: Anxiety, Bipolar, Depression Smoking Status: Never smoker Past Alcohol Use History: None Reported Past Drug Use History: None Reported - Past Family History Father History Unknown: Yes Mother Family Medical History: No Reported History General Exam Limitations: no limitations General appearance: alert, in no apparent distress Head exam: Present: atraumatic, normocephalic, normal inspection Eye exam: Present: normal appearance, EOMI Pupils: Present: normal accommodation ENT exam: Present: normal exam, normal oropharynx, mucous membranes moist Neck exam: Present: normal inspection, full ROM. Absent: tenderness Respiratory exam: Present: normal lung sounds bilaterally. Absent: respiratory distress, wheezes, rales, rhonchi, stridor, chest wall tenderness Cardiovascular Exam: Present: regular rate, normal rhythm, normal heart sounds. Absent: systolic murmur GI/Abdominal exam: Present: soft. Absent: distended, tenderness, guarding, rebound Rectal exam: Present: hemorrhoids (External hemorrhoids noted). Absent: other (No signs of rectal prolapse) Extremities exam: Present: normal inspection, full ROM Back exam: Present: normal inspection, full ROM. Absent: tenderness Neurological exam: Present: alert, oriented X3 Psychiatric exam: Present: normal affect, normal mood Skin exam: Present: warm, dry, intact, normal color Course Vital Signs 10/01/20 10/01/20 10/01/20 12:45 17:03 18:00 Temperature 98.4 F 97.6 F 97.7 F Pulse Rate 76 67 65 Respiratory 16 18 18 Rate Blood Pressure 124/79 131/80 123/66 O2 Sat by Pulse 97 100 98 Oximetry Medical Decision Making - Medical Decision Making 45-year-old female presents to emergency Department with a chief complaint of hemorrhoid. On physical examination, no signs of a prolapse as the patient was concerned. She does have a thrombosed external hemorrhoid, however this is on the borderline of the 72 hour window. I discussed with the patient that the window for laceration is nearing the end. I gave her the option of following up with Dr. Azul, who she previously has seen before for hemorrhoids, or incision and drainage can be performed here but the results may be futile due to being so late after onset. Patient would prefer incision and drainage here. I did perform this with local anesthesia. Patient had a procedure well. Laboratory work obtained showed mild transaminitis. UA unremarkable. C. diff was negative. CT of abdomen and pelvis shows pancolitis with some thickening of the colon. There was a concern for possible inflammatory bowel disease such as ulcerative colitis., However due to the wall thickening nature of the colon, I did offer treatment with antibiotics. However, this may potentially cause development of C. diff. This information was discussed with the patient and she agreed to hold off on antibiotics until she is able to see the general surgeon. I provided symptomatic for her. Advised to continue doing the sits baths and Preparation H. She is yet to use any of the Bentyl that was prescribed to her for diarrhea 2 days ago. Return parameters were thoroughly discussed with patient who is understanding and agreeable. Case discussed with Dr. Rosas - Lab Data Result diagrams: 10/01/20 15:23 10/01/20 15:23 Lab Results 10/01/20 10/01/20 10/01/20 Range/Units 15:23 15:23 15:23 WBC 5.0 (3.8-10.6) k/uL RBC 4.87 (3.80-5.40) m/uL Hgb 14.6 (11.4-16.0) gm/dL Hct 43.7 (34.0-46.0) % MCV 89.8 (80.0-100.0) fL MCH 30.0 (25.0-35.0) pg MCHC 33.4 (31.0-37.0) g/dL RDW 13.0 (11.5-15.5) % Plt Count 294 (150-450) k/uL MPV 6.7 Neutrophils % 61 % Lymphocytes % 24 % Monocytes % 8 % Eosinophils % 2 % Basophils % 1 % Neutrophils # 3.1 (1.3-7.7) k/uL Lymphocytes # 1.2 (1.0-4.8) k/uL Monocytes # 0.4 (0-1.0) k/uL Eosinophils # 0.1 (0-0.7) k/uL Basophils # 0.1 (0-0.2) k/uL Sodium 138 (137-145) mmol/L Potassium 3.7 (3.5-5.1) mmol/L Chloride 103 (98-107) mmol/L Carbon Dioxide 26 (22-30) mmol/L Anion Gap 9 mmol/L BUN 11 (7-17) mg/dL Creatinine 0.75 (0.52-1.04) mg/dL Est GFR (CKD-EPI)AfAm >90 (>60 ml/min/1.73 sqM) Est GFR (CKD-EPI)NonAf >90 (>60 ml/min/1.73 sqM) Glucose 98 (74-99) mg/dL Calcium 9.5 (8.4-10.2) mg/dL Total Bilirubin 0.4 (0.2-1.3) mg/dL AST 78 H (14-36) U/L ALT 92 H (4-34) U/L Alkaline Phosphatase 142 H (38-126) U/L Total Protein 7.1 (6.3-8.2) g/dL Albumin 4.4 (3.5-5.0) g/dL Lipase 142 (23-300) U/L Urine Color Yellow Urine Appearance Clear (Clear) Urine pH 5.5 (5.0-8.0) Ur Specific [place] 1.032 (1.001-1.035) Urine Protein Trace H (Negative) Urine Glucose (UA) Negative (Negative) Urine Ketones Negative (Negative) Urine Blood Moderate H (Negative) Urine Nitrite Negative (Negative) Urine Bilirubin Negative (Negative) Urine Urobilinogen <2.0 (<2.0) mg/dL Ur Leukocyte Esterase Small H (Negative) Urine RBC 6 H (0-5) /hpf Urine WBC 4 (0-5) /hpf Ur Squamous Epith Cells 1 (0-4) /hpf Urine Mucus Many H (None) /hpf Urine HCG, Qual (Not Detectd) C. difficile (EIA) Intrp (Negative) 10/01/20 10/01/20 Range/Units 15:23 17:01 WBC (3.8-10.6) k/uL RBC (3.80-5.40) m/uL Hgb (11.4-16.0) gm/dL Hct (34.0-46.0) % MCV (80.0-100.0) fL MCH (25.0-35.0) pg MCHC (31.0-37.0) g/dL RDW (11.5-15.5) % Plt Count (150-450) k/uL MPV Neutrophils % % Lymphocytes % % Monocytes % % Eosinophils % % Basophils % % Neutrophils # (1.3-7.7) k/uL Lymphocytes # (1.0-4.8) k/uL Monocytes # (0-1.0) k/uL Eosinophils # (0-0.7) k/uL Basophils # (0-0.2) k/uL Sodium (137-145) mmol/L Potassium (3.5-5.1) mmol/L Chloride (98-107) mmol/L Carbon Dioxide (22-30) mmol/L Anion Gap mmol/L BUN (7-17) mg/dL Creatinine (0.52-1.04) mg/dL Est GFR (CKD-EPI)AfAm (>60 ml/min/1.73 sqM) Est GFR (CKD-EPI)NonAf (>60 ml/min/1.73 sqM) Glucose (74-99) mg/dL Calcium (8.4-10.2) mg/dL Total Bilirubin (0.2-1.3) mg/dL AST (14-36) U/L ALT (4-34) U/L Alkaline Phosphatase (38-126) U/L Total Protein (6.3-8.2) g/dL Albumin (3.5-5.0) g/dL Lipase (23-300) U/L Urine Color Urine Appearance (Clear) Urine pH (5.0-8.0) Ur Specific [place] (1.001-1.035) Urine Protein (Negative) Urine Glucose (UA) (Negative) Urine Ketones (Negative) Urine Blood (Negative) Urine Nitrite (Negative) Urine Bilirubin (Negative) Urine Urobilinogen (<2.0) mg/dL Ur Leukocyte Esterase (Negative) Urine RBC (0-5) /hpf Urine WBC (0-5) /hpf Ur Squamous Epith Cells (0-4) /hpf Urine Mucus (None) /hpf Urine HCG, Qual Not Detected (Not Detectd) C. difficile (EIA) Intrp Negative (Negative) Disposition Clinical Impression: External hemorrhoids Disposition: HOME SELF-CARE Condition: Stable Instructions (If sedation given, give patient instructions): Hemorrhoids (ED) Additional Instructions: Please return to the Emergency Department if symptoms worsen or any other concerns. Follow with Dr. Azul Is patient prescribed a controlled substance at d/c from ED?: No Referrals: Satish Amaya DO [Primary Care Provider] - 1-2 days Time of Disposition: 17:32
[2020-10-01 16:07] LABS: Basophils # (A) 0.1 k/uL (0-0.2); Basophils % (A) 1 %; Eosinophils # (A) 0.1 k/uL (0-0.7); Eosinophils % (A) 2 %; HCT 43.7 % (34.0-46.0); HGB 14.6 gm/dL (11.4-16.0); Lymphocytes # (A) 1.2 k/uL (1.0-4.8); Lymphocytes % (A) 24 %; MCHC 33.4 g/dL (31.0-37.0); MCV 89.8 fL (80.0-100.0); Mean Platelet Volume 6.7; Monocytes # (A) 0.4 k/uL (0-1.0); Monocytes % (A) 8 %; Neutrophils # (A) 3.1 k/uL (1.3-7.7); Neutrophils % (A) 61 %; Platelet Count 294 k/uL (150-450); RBC 4.87 m/uL (3.80-5.40)
[2020-10-01 16:19] LABS: ALT 92 U/L (4-34); AST 78 U/L (14-36); African American GFR (CKD) >90 (>60 ml/min/1.73 sqM); Albumin 4.4 g/dL (3.5-5.0); Alkaline Phosphatase 142 U/L (38-126); Anion Gap 9 mmol/L; Blood Urea Nitrogen 11 mg/dL (7-17); Calcium 9.5 mg/dL (8.4-10.2); Carbon Dioxide 26 mmol/L (22-30); Chloride 103 mmol/L (98-107); Glucose 98 mg/dL (74-99); Lipase 142 U/L (23-300); Non-African American GFR(CKD) >90 (>60 ml/min/1.73 sqM); Potassium 3.7 mmol/L (3.5-5.1); Sodium 138 mmol/L (137-145); Total Bilirubin 0.4 mg/dL (0.2-1.3); Total Protein 7.1 g/dL (6.3-8.2)
[2020-10-01 16:41] LABS: Appearance,Urine Clear (Clear); Bilirubin,Urine Negative (Negative); Blood,Urine Moderate (Negative); Color,Urine Yellow; Glucose,Urine (UA) Negative (Negative); Ketones,Urine Negative (Negative); Leukocyte Esterase,Urine Small (Negative); Mucus,Urine Many /hpf; Nitrite,Urine Negative (Negative); PH, Urine 5.5 (5.0-8.0); Protein,Urine Trace (Negative); RBC,Urine 6 /hpf (0-5); Specific Gravity,Urine 1.032 (1.001-1.035); Squamous Epithelial Cell,Urine 1 /hpf (0-4); Urobilinogen,Urine <2.0 mg/dL (<2.0); WBC,Urine 4 /hpf (0-5)
--- NOTE | 2020-10-01 16:55 | CT ---
EXAMINATION TYPE: CT abdomen pelvis w con DATE OF EXAM: 10/01/2020 COMPARISON: 03/03/2020 CT abdomen/pelvis HISTORY: abdominal pain, diarrhea CT DLP: 862 mGycm Automated exposure control for dose reduction was used. TECHNIQUE: Helical acquisition of images was performed from the lung bases through the pelvis. Sagit leni and coronal reformatted images CONTRAST: Performed without Oral Contrast and with IV Contrast, patient injected with 100 mL of Isovue 300. FINDINGS: Lung bases appear clear. Liver, spleen, pancreas, and bilateral adrenal glands appear unremarkable. Gallbladder is surgically absent. No intrahepatic or extrahepatic biliary ductal dilatation. Kidneys are symmetric in size without hydronephrosis. Unchanged 4 mm left renal calculus of the upper pole. Urinary bladder appears underdistended. Uterus is present. No adnexal masses. Tubal ligation clips are present. Mild diffuse colonic wall thickening and pericolonic inflammation from the rectum through the ascendi ng colon. No evidence of bowel obstruction. Appendix appears unremarkable. No free fluid or free air. Mild atherosclerotic calcification of the infrarenal abdominal aorta without aneurysm. No intra-abdom inal or retroperitoneal lymphadenopathy. Multilevel degenerative changes of the visualized thoracolum bar spine. Tiny fat-containing umbilical hernia. IMPRESSION: 1. Mild diffuse colonic wall thickening with pericolonic inflammation from the rectum through ascendi ng colon. Findings are most consistent with pancolitis, likely of infectious/inflammatory etiology. C onsider ulcerative colitis given the distribution
[2020-10-01 17:06] VITALS: RESP 18
[2020-10-01] MEDS ORDERED: LIDOCAINE 1%-EPI 1:100,000 20 ML VIAL SQ STA (17:08)
[2020-10-01] MEDS ORDERED: DICYCLOMINE 20 MG TAB PO STA (17:31)
[2020-10-01] MEDS ORDERED: MORPHINE SULFATE 4 MG/ML SYRINGE IVP STA (17:41)
[2020-10-01 18:00] VITALS: BP 123/66; PULSE 65; TEMP 97.7
== END 2020-10-01 18:02 | disposition home or self-care (01) ==
LOC: EC 12:11
DX: K64.4 Residual hemorrhoidal skin tags (principal); F41.9 Anxiety disorder, unspecified; F31.9 Bipolar disorder, unspecified; Z88.8 Allergy status to other drugs, medicaments and biological substances; Z90.49 Acquired absence of other specified parts of digestive tract; Z98.51 Tubal ligation status
CPT/HCPCS: 99284; 96374; 96361; 36415; 80053; 83690; 85025; 81001; 81025; 87324; 74177; J2270; Q9967

== ENCOUNTER → 2021-01-03 | Outpatient (CLI) | payer OTHER ==
--- NOTE | 2021-01-03 11:56 | XR ---
EXAMINATION TYPE: XR shoulder complete LT DATE OF EXAM: 01/03/2021 Comparison: None Clinical History: 45-year-old female M25.512 LEFT SHOULDER PAIN Findings: AC joint appears intact. Subacromial space is preserved. No tendinous or bursal calcifications. No ac cayden fracture, subluxation, or dislocation. IMPRESSION: No acute osseous abnormality seen.
== END | disposition home or self-care (01) ==
LOC: RADXRMAIN 10:54
PROVIDERS: ATTEND Nurse Practitioner Family
DX: M25.512 Pain in left shoulder (principal)

== ENCOUNTER → 2021-02-19 | Outpatient (CLI) | payer OTHER ==
--- NOTE | 2021-02-19 14:19 | US ---
EXAMINATION TYPE: US transvaginal DATE OF EXAM: 02/19/2021 COMPARISON: US Transvaginal 2017 CLINICAL HISTORY: N83.202. Left-sided pelvic pain - patient states feeling the pain when she is walki ng up or down the stairs and when doing any physical activity. TECHNIQUE: Transvaginal (TV). Date of LMP: December 2020 EXAM MEASUREMENTS: Uterus: 7.8 x 3.9 x 4.5 cm Endometrial Stripe: 1.0 cm Right Ovary: 2.0 x 1.7 x 2.1 cm Left Ovary: 1.9 x 1.8 x 1.8 cm 1. Uterus: Anteverted Appears wnl 2. Endometrium: Somewhat bulky; patient has irregular cycles 3. Right Ovary: Probable dominant follicle 1.5 x 1.5 x 1.4 cm 4. Left Ovary: Appears wnl 5. Bilateral Adnexa: wnl 6. Posterior cul-de-sac: wnl IMPRESSION: 1. Endometrial stripe measures 1 cm correlate with the phase of the patient's menstrual cycle. 1.5 cm hypoechoic nodule right ovary likely related to a dominant follicle or small cyst. A follow-up exam in 6-8 weeks could be obtained for resolution.
== END | disposition home or self-care (01) ==
LOC: RADUSWWP 13:32
PROVIDERS: ATTEND Surgery Plastic and Reconstructive Surgery
DX: N83.8 Other noninflammatory disorders of ovary, fallopian tube and broad ligament (principal)
CPT/HCPCS: 76830

== ENCOUNTER → 2021-07-16 | Outpatient (CLI) | payer OTHER ==
--- NOTE | 2021-07-16 18:46 | XR ---
EXAMINATION TYPE: XR cervical spine 3 views DATE OF EXAM: 07/16/2021 Comparison: None Clinical History: 46-year-old female [id number] Findings: No predental space widening. No prevertebral soft tissue swelling. Mild degenerative disc disease wit h mild disc space narrowing C6-C7. Facet arthropathy and uncovertebral joint arthropathy lower cervic al spine. Alignment is maintained. Straightening of the normal cervical lordosis. Normal odontoid vie w. Impression: Uncovertebral joint and facet arthropathy in the lower cervical spine. There is also mild degenerativ e disc disease in the lower cervical spine. Straightening of the normal cervical lordosis could be po sitional or due to muscle spasm.
== END | disposition home or self-care (01) ==
LOC: RADXRMAIN 13:01
PROVIDERS: ATTEND Nurse Practitioner Family
DX: M47.812 Spondylosis without myelopathy or radiculopathy, cervical region (principal); M50.323 Other cervical disc degeneration at C6-C7 level
CPT/HCPCS: 72040

== ENCOUNTER → 2021-12-24 | Outpatient (CLI) | payer OTHER ==
--- NOTE | 2021-12-24 14:26 | XR ---
EXAMINATION TYPE: XR foot complete LT DATE OF EXAM: 12/24/2021 CLINICAL HISTORY: Pain. TECHNIQUE: Frontal, lateral, and oblique images of the left foot are obtained. COMPARISON: None FINDINGS: There is no acute fracture/dislocation evident in the left foot. The joint spaces in the left foot appear within normal limits. Some calcification at distal extremities tendon insertion isatu g the posterior superior calcaneus could reflect products of a distal calcific tendinitis. Lateral vi ew shows well-defined ossific fragment from the proximal dorsal aspect of the navicular bone could re flect products of old avulsion type fracture. The overlying soft tissue appears unremarkable. IMPRESSION: As above.
== END | disposition home or self-care (01) ==
LOC: RADXRMAIN 12:11
PROVIDERS: ATTEND Nurse Practitioner Family
DX: M79.672 Pain in left foot (principal)

== ENCOUNTER 2022-02-28 08:01 | Emergency (ER) | payer OTHER ==
[2022-02-28 08:20] VITALS: TEMP 97.4
[2022-02-28] MEDS ORDERED: DIPH,PERTUS(ACELL)TETVAC-LF 0.5 ML VIAL IM ONE (08:32)
--- NOTE | 2022-02-28 08:37 | ED ---
Head Injury HPI - General Chief complaint: Head Injury Stated complaint: Head injury Time Seen by Provider: 02/28/22 08:22 Source: patient, RN notes reviewed Mode of arrival: ambulatory Limitations: no limitations - History of Present Illness Initial comments: This a 46-year-old female presents emergency Department with chief complaint of head injury. Patient states that she was chasing her cat when she ran into a wooden shelf. Patient states she has abrasion, swelling and complains of severe headache. Patient states that she did not lose consciousness she feels off denies any current neck or back pain no extremity weakness or paresthesias she does not slight nausea and feeling lightheaded. - Related Data Home Medications Medication Instructions Recorded Confirmed armodafiniL [Nuvigil] 375 mg PO DAILY 07/19/13 10/01/20 Lurasidone [Latuda] 80 mg PO HS 06/22/16 10/01/20 Atorvastatin [Lipitor] 20 mg PO HS 03/03/20 10/01/20 Lisinopril-Hctz 10-12.5 mg 1 tab PO DAILY 03/03/20 10/01/20 [Zestoretic 10-12.5] lamoTRIgine [LaMICtal] 100 mg PO HS 03/03/20 10/01/20 lamoTRIgine [LaMICtal] 200 mg PO BID 03/03/20 10/01/20 Cholecalciferol (Vitamin D3) 125 mcg PO DAILY 10/01/20 10/01/20 [Vitamin D3 (125 MCG = 5,000 IU)] Fish Oil/Dha/Epa [Fish Oil 1,200 1 cap PO DAILY 10/01/20 10/01/20 mg Fish Oil] HYDROcodone/APAP 5-325MG [[place] 5] 1 tab PO Q6HR PRN 10/01/20 10/01/20 Vilazodone HCl [Viibryd] 20 mg PO DAILY 10/01/20 10/01/20 cloNIDine HCL [Catapres] 0.1 mg PO HS 10/01/20 10/01/20 Allergies/Adverse reactions: Allergies Allergy/AdvReac Type Severity Reaction Status Date / Time phenazopyridine HCl Allergy Severe rash Verified 10/01/20 15:59 [From Pyridium] face,arms & [id number]-[id number] never to have again Review of Systems ROS Statement: Those systems with pertinent positive or pertinent negative responses have been documented in the HPI. ROS Other: All systems not noted in ROS Statement are negative. Past Medical History Past Medical History: Hyperlipidemia, Hypertension Additional Past Medical History / Comment(s): NARCOLEPSY- CONTROLLED WITH MEDS, HEMORRHOIDS- IN ER 10/09/14 FOR PAIN-WAS LANCED AND SENT HOME-SEE ER NOTES-HAS HAD THROMBOSED HEMORRHOIDS X 2 BEFORE, OCCASIONAL DIARRHEA, HAS C-PAP BUT IS NOT USING @ THIS TIME History of Any Multi-Drug Resistant Organisms: None Reported Past Surgical History: Adenoidectomy, Cholecystectomy, Tonsillectomy, Tubal Ligation Additional Past Surgical History / Comment(s): laparoscopy, hemmorhoidectomy Past Anesthesia/Blood Transfusion Reactions: No Reported Reaction Additional Past Anesthesia/Blood Transfusion Reaction / Comment(s): difficulty coming out of anethesia, advised to stay overnight for observation. pt states uncontrollable shaking. Past Psychological History: Anxiety, Bipolar, Depression Smoking Status: Never smoker Past Alcohol Use History: None Reported Past Drug Use History: None Reported - Past Family History Father History Unknown: Yes Mother Family Medical History: No Reported History General Exam Limitations: no limitations General appearance: alert, in no apparent distress Head exam: Present: atraumatic, normocephalic. Absent: normal inspection (Swelling left frontal with abrasion noted) Eye exam: Present: normal appearance, PERRL, EOMI. Absent: scleral icterus, conjunctival injection, periorbital swelling ENT exam: Present: normal exam, normal oropharynx, mucous membranes moist Neck exam: Present: normal inspection. Absent: tenderness, meningismus, lymphadenopathy Respiratory exam: Present: normal lung sounds bilaterally. Absent: respiratory distress, wheezes, rales, rhonchi, stridor Cardiovascular Exam: Present: regular rate, normal rhythm, normal heart sounds. Absent: systolic murmur, diastolic murmur, rubs, gallop, clicks GI/Abdominal exam: Present: soft, normal bowel sounds. Absent: distended, tenderness, guarding, rebound, rigid Back exam: Absent: CVA tenderness (R), CVA tenderness (L) Neurological exam: Present: alert Skin exam: Present: warm, dry, intact, normal color. Absent: rash Course Vital Signs 02/28/22 08:15 Temperature 97.4 F L Pulse Rate 91 Respiratory 20 Rate Blood Pressure 119/82 O2 Sat by Pulse 99 Oximetry Medical Decision Making - Medical Decision Making Was pt. sent in by a medical professional or institution (, [facility], [employer], urgent care, hospital, or [place] health care facility...) When possible be specific @ -[No] Did you speak to anyone other than the patient for history (EMS, parent, family, police, friend...)? What history was obtained from this source @ -[No] Did you review nursing and triage notes (agree or disagree)? Why? @ -[I reviewed and agree with nursing and triage notes] Were old charts reviewed (outside hosp., previous admission, EMS record, old EKG, old radiological studies, urgent care reports/EKG's, [place] health care facility records)? Report findings @ -[No old charts were reviewed] Differential Diagnosis (chest pain, altered mental status, abdominal pain women, abdominal pain men, vaginal bleeding, weakness, fever, dyspnea, syncope, headache, dizziness, GI bleed, back pain, seizure, CVA, palpatations, mental health)? @ -Closed head injury, scalp contusion, intracranial hemorrhage, skull fracture, scalp laceration, this list is not all inclusive EKG interpreted by me (3pts min.). @ -[None] X-rays interpreted by me (1pt min.). @ -[None done] CT interpreted by me (1pt min.). @ -The brain shows no acute intracranial process, patient is scalp edema noted left frontal U/S interpreted by me (1pt. min.). @ -[None done] What testing was considered but not performed or refused? (CT, X-rays, U/S, labs)? Why? @ -[None] What meds were considered but not given or refused? Why? @ -[None] Did you discuss the management of the patient with other professionals (profe sandhyaonals i.e. , [facility], [employer], lab, RT, psych nurse, social and political studies professor, worm farmer, teacher, debt recovery officer, case worker)? Give summary @ -[No] Was smoking cessation discussed for >3mins.? @ -[No] Was critical care preformed (if so, how long)? @ -[No] Were there social determinants of health that impacted care today? How? (Homelessness, low income, unemployed, alcoholism, drug addiction, transportation, low edu. Level, literacy, decrease access to med. care, prison, rehab)? @ -[No] Was there de-escalation of care discussed even if they declined (Discuss DNR or withdrawal of care, Hospice)? DNR status @ -[No] What co-morbidities impacted this encounter? (DM, HTN, Smoking, COPD, CAD, Cancer, CVA, ARF, Chemo, Hep., AIDS, mental health diagnosis, sleep apnea, morbid obesity)? @ -[None] Was patient admitted / discharged? Hospital course, mention meds given and route, prescriptions, significant lab abnormalities, going to OR and other pertinent info. @ -[Discharged - patient's CT does not show any acute processes. Patient is scalp contusion patient was discharged in stable condition tetanus is updated. scalp Abrasion] Undiagnosed new problem with uncertain prognosis? @ -[No] Drug Therapy requiring intensive monitoring for toxicity (Heparin, Nitro, Insulin, Cardizem)? @ -[No] Were any procedures done? @ -[No] Diagnosis/symptom? @ - Scalp hematoma Acute, or Chronic, or Acute on Chronic? @ -Acute Uncomplicated (without systemic symptoms) or Complicated (systemic symptoms)? @ -Uncomplicated Side effects of treatment? @ -[No] Exacerbation, Progression, or Severe Exacerbation? @ -[No] Poses a threat to life or bodily function? How? (Chest pain, [place], [place], pneumonia, PE, COPD, DKA, ARF, appy, cholecystitis, CVA, Diverticulitis, Homicidal, Suicidal, threat to staff... and all critical care pts) @ -[No] Disposition Clinical Impression: Hematoma of scalp, Closed head injury Disposition: HOME SELF-CARE Condition: Stable Instructions (If sedation given, give patient instructions): Head Injury (ED) Additional Instructions: Please return to the Emergency Department if symptoms worsen or any other concerns. Is patient prescribed a controlled substance at d/c from ED?: No Referrals: Satish Amaya DO [Primary Care Provider] - 1-2 days Time of Disposition: 09:38
[2022-02-28] MEDS ORDERED: ACETAMINOPHEN TAB 500 MG TAB PO STA (08:38)
--- NOTE | 2022-02-28 09:21 | CT ---
EXAMINATION TYPE: CT brain wo con CT DLP: 1119.4 mGycm, Automated exposure control for dose reduction was used. DATE OF EXAM: 02/28/2022 9:14 AM COMPARISON: 08/31/2011. CLINICAL INDICATION:Female, 46 years old with history of trauma, pain, head injury, left frontal cont usion. TECHNIQUE: Brain: Axial CT images of the brain were obtained with coronal and sagittal reformats created and rev iewed. Contrast used: None. Oral contrast used: None. FINDINGS: Brain: Extra-axial spaces: No abnormal extra-axial fluid collections. Ventricular system: Within normal limits Cerebral parenchyma: No acute intraparenchymal hemorrhage or mass effect. The leiva-white junction is well differentiated. Cerebellum: Unremarkable. Mass effect: No evidence of midline shift. Intracranial vasculature: unremarkable Soft tissues: Left scalp edema Calvarium/osseous structures: No depressed skull fracture. Paranasal sinuses and mastoid air cells: Mild scattered paranasal sinus disease. Visualized orbits: Orbital contents are intact. IMPRESSION: 1. No acute intracranial process. 2. Left frontal scalp edema.
[2022-02-28 09:47] VITALS: BP 123/78; PULSE 77; RESP 16
== END 2022-02-28 10:04 | disposition home or self-care (01) ==
LOC: EC 08:01
DX: S00.03XA Contusion of scalp, initial encounter (principal); E78.5 Hyperlipidemia, unspecified; I10 Essential (primary) hypertension; F41.9 Anxiety disorder, unspecified; F31.9 Bipolar disorder, unspecified; Z88.8 Allergy status to other drugs, medicaments and biological substances; Z79.899 Other long term (current) drug therapy; Z23 Encounter for immunization; W22.8XXA Striking against or struck by other objects, initial encounter; Y92.009 Unspecified place in unspecified non-institutional (private) residence as the place of occurrence of the external cause
CPT/HCPCS: 70450; 90471; 90715; 99284

== ENCOUNTER 2022-04-21 10:14 | Emergency (ER) | payer OTHER ==
[2022-04-21 10:18] VITALS: BP 152/77; PULSE 92; RESP 18; TEMP 98.4
--- NOTE | 2022-04-21 10:40 | ED ---
General Adult HPI - General Chief complaint: Skin/Abscess/Foreign Body Stated complaint: post op Time Seen by Provider: 04/21/22 10:15 Source: patient, RN notes reviewed, old records reviewed Mode of arrival: ambulatory Limitations: no limitations - History of Present Illness Initial comments: This is a 46-year-old female who presents to the emergency department complaining of blistering around the tape that is holding down her bandage from shoulder surgery. Patient shoulder surgery at [facility] and she is noticing the tape is causing blisters. Patient did not want to take off the tape herself because it would remove the bandage so she has come here for us to repeat tape with paper tape. Patient has no other symptoms at this time. - Related Data Home Medications Medication Instructions Recorded Confirmed armodafiniL [Nuvigil] 375 mg PO DAILY 07/19/13 10/01/20 Lurasidone [Latuda] 80 mg PO HS 06/22/16 10/01/20 Atorvastatin [Lipitor] 20 mg PO HS 03/03/20 10/01/20 Lisinopril-Hctz 10-12.5 mg 1 tab PO DAILY 03/03/20 10/01/20 [Zestoretic 10-12.5] lamoTRIgine [LaMICtal] 100 mg PO HS 03/03/20 10/01/20 lamoTRIgine [LaMICtal] 200 mg PO BID 03/03/20 10/01/20 Cholecalciferol (Vitamin D3) 125 mcg PO DAILY 10/01/20 10/01/20 [Vitamin D3 (125 MCG = 5,000 IU)] Fish Oil/Dha/Epa [Fish Oil 1,200 1 cap PO DAILY 10/01/20 10/01/20 mg Fish Oil] HYDROcodone/APAP 5-325MG [[place] 5] 1 tab PO Q6HR PRN 10/01/20 10/01/20 Vilazodone HCl [Viibryd] 20 mg PO DAILY 10/01/20 10/01/20 cloNIDine HCL [Catapres] 0.1 mg PO HS 10/01/20 10/01/20 Allergies Allergy/AdvReac Type Severity Reaction Status Date / Time phenazopyridine HCl Allergy Severe rash Verified 04/21/22 10:18 [From Pyridium] face,arms & [id number] never to have again Review of Systems ROS Statement: Those systems with pertinent positive or pertinent negative responses have been documented in the HPI. ROS Other: All systems not noted in ROS Statement are negative. Past Medical History Past Medical History: Hyperlipidemia, Hypertension Additional Past Medical History / Comment(s): NARCOLEPSY- CONTROLLED WITH MEDS, HEMORRHOIDS- IN ER 10/09/14 FOR PAIN-WAS LANCED AND SENT HOME-SEE ER NOTES-HAS HAD THROMBOSED HEMORRHOIDS X 2 BEFORE, OCCASIONAL DIARRHEA, HAS C-PAP BUT IS NOT USING @ THIS TIME History of Any Multi-Drug Resistant Organisms: None Reported Past Surgical History: Adenoidectomy, Cholecystectomy, Tonsillectomy, Tubal Ligation Additional Past Surgical History / Comment(s): laparoscopy, hemmorhoidectomy Past Anesthesia/Blood Transfusion Reactions: No Reported Reaction Additional Past Anesthesia/Blood Transfusion Reaction / Comment(s): difficulty coming out of anethesia, advised to stay overnight for observation. pt states uncontrollable shaking. Past Psychological History: Anxiety, Bipolar, Depression Smoking Status: Never smoker Past Alcohol Use History: None Reported Past Drug Use History: None Reported - Past Family History Father History Unknown: Yes Mother Family Medical History: No Reported History General Exam - General Exam Comments Initial Comments: GENERAL Patient is well-developed and well-nourished. Patient is in mild distress. EYES Patient's pupils are equal and round. Extraocular motion is intact SKIN Unremarkable NEURO The patient is alert and oriented 3 PYSCH Patient has normal interpersonal interactions. MUSCULOSKELETAL Patient's right shoulder has adhesive tape and where the adhesive tapes touching the skin is causing redness and some blistering. Limitations: no limitations Course Vital Signs 04/21/22 10:15 Temperature 98.4 F Pulse Rate 92 Respiratory 18 Rate Blood Pressure 152/77 O2 Sat by Pulse 96 Oximetry Medical Decision Making - Medical Decision Making Was pt. sent in by a medical professional or institution (, PA, GENERATOR MECHANIC, urgent care, hospital, or skilled nursing...) When possible be specific @ -No Did you speak to anyone other than the patient for history (EMS, parent, family, police, friend...)? What history was obtained from this source @ -No Did you review nursing and triage notes (agree or disagree)? Why? @ -I reviewed and agree with nursing and triage notes Were old charts reviewed (outside hosp., previous admission, EMS record, old EKG, old radiological studies, urgent care reports/EKG's, skilled nursing records)? Report findings @ -No old charts were reviewed Differential Diagnosis (chest pain, altered mental status, abdominal pain women, abdominal pain men, vaginal bleeding, weakness, fever, dyspnea, syncope, headache, dizziness, GI bleed, back pain, seizure, CVA, palpatations, mental health, musculoskeletal)? @ -Cellulitis, contact dermatitis EKG interpreted by me (3pts min.). @ -As above X-rays interpreted by me (1pt min.). @ -None done CT interpreted by me (1pt min.). @ -None done U/S interpreted by me (1pt. min.). @ -None done What testing was considered but not performed or refused? (CT, X-rays, U/S, labs)? Why? @ -None What meds were considered but not given or refused? Why? @ -None Did you discuss the management of the patient with other professionals (professionals i.e. , PA, GENERATOR MECHANIC, lab, RT, psych nurse, social media marketing manager, operations processor, t eacher, workers' compensation hearings officer, family independence case manager)? Give summary @ -No Was smoking cessation discussed for >3mins.? @ -No Was critical care preformed (if so, how long)? @ -No Were there social determinants of health that impacted care today? How? (Homelessness, low income, unemployed, alcoholism, drug addiction, transportation, low edu. Level, literacy, decrease access to med. care, long-term, rehab)? @ -No Was there de-escalation of care discussed even if they declined (Discuss DNR or withdrawal of care, Hospice)? DNR status @ -No What co-morbidities impacted this encounter? (DM, HTN, Smoking, COPD, CAD, Cancer, CVA, ARF, Chemo, Hep., AIDS, mental health diagnosis, sleep apnea, morbid obesity)? @ -None Was patient admitted / discharged? Hospital course, mention meds given and ro resighini, prescriptions, significant lab abnormalities, going to OR and other pertinent info. @ -Contact dermatitis was occurring where the adhesive tape is touching the skin. That was removed and replaced with paper tape and she was told to follow- up with her orthopedic surgeon Undiagnosed new problem with uncertain prognosis? @ -No Drug Therapy requiring intensive monitoring for toxicity (Heparin, Nitro, Insulin, Cardizem)? @ -No Were any procedures done? @ -No Diagnosis/symptom? @ -Contact dermatitis Acute, or Chronic, or Acute on Chronic? @ -Acute Uncomplicated (without systemic symptoms) or Complicated (systemic symptoms)? @ -Uncomplicated Side effects of treatment? @ -No Exacerbation, Progression, or Severe Exacerbation? @ -No Poses a threat to life or bodily function? How? (Chest pain, [place], [place], pneumonia, PE, COPD, DKA, ARF, appy, cholecystitis, CVA, Diverticulitis, Homicidal, Suicidal, threat to staff... and all critical care pts) @ -No Disposition Clinical Impression: Contact dermatitis Disposition: HOME SELF-CARE Condition: Good Instructions (If sedation given, give patient instructions): Contact Dermatitis (ED) Is patient prescribed a controlled substance at d/c from ED?: No Referrals: Satish Amaya DO [Primary Care Provider] - 1-2 days Time of Disposition: 10:40
== END 2022-04-21 11:14 | disposition home or self-care (01) ==
LOC: EC 10:14
DX: L25.9 Unspecified contact dermatitis, unspecified cause (principal); E78.5 Hyperlipidemia, unspecified; F31.9 Bipolar disorder, unspecified; I10 Essential (primary) hypertension; F41.9 Anxiety disorder, unspecified; Z79.899 Other long term (current) drug therapy; Z88.8 Allergy status to other drugs, medicaments and biological substances
CPT/HCPCS: 99283

== ENCOUNTER → 2022-09-05 | Outpatient (CLI) | payer OTHER ==
--- NOTE | 2022-09-05 15:32 | US ---
EXAMINATION TYPE: US kidneys/renal and bladder DATE OF EXAM: 09/05/2022 COMPARISON: NONE CLINICAL INDICATION: Female, 47 years old with history of R10.9 UNSPECIFIED ABDOMINAL PAIN; EXAM MEASUREMENTS: Right Kidney: 10.9 x 4.6 x 5.0 cm Left Kidney: 11.1 x 4.9 x 4.0 cm Right Kidney: no evidence of hydronephrosis Left Kidney: no evidence of hydronephrosis Bladder: wnl Bilateral Jets seen: yes IMPRESSION: No hydronephrosis or other specific abnormality seen.
== END | disposition home or self-care (01) ==
LOC: RADUSWWP 08:25
PROVIDERS: ATTEND Family Medicine
DX: R10.9 Unspecified abdominal pain (principal)
CPT/HCPCS: 76770

== ENCOUNTER → 2022-10-17 | Outpatient (CLI) | payer OTHER ==
--- NOTE | 2022-10-17 09:56 | US ---
EXAMINATION TYPE: US mass soft tissue chest/back DATE OF EXAM: 10/17/2022 COMPARISON: NONE CLINICAL INDICATION: Female, 47 years old with history of T14.8XXA OTHER INJURY OF UNSPECIFIED BODY R EGION,; Mass/lump left buttock after patient fell down the stairs 3 weeks ago. Pain. TECHNIQUE: Targeted scanning along the patient's palpable site left buttock. FINDINGS: The cotton candy maker notes: Scanned left buttock. Complex fluid was seen within area of concern measurin.0 x 5.9 x 1.6 cm. IMPRESSION: Mildly complex subcutaneous fluid collection measuring 6.0 x 5.9 x 1.6 cm at the patient's left butto ck palpable site. Consider liquefied hematoma or abscess.
== END | disposition home or self-care (01) ==
LOC: RADUSWWP 07:45
PROVIDERS: ATTEND Family Medicine
DX: T14.8XXA Other injury of unspecified body region, initial encounter (principal)

== ENCOUNTER 2023-12-12 10:44 | Emergency (ER) | payer OTHER ==
[2023-12-12 10:54] VITALS: RESP 18; TEMP 98.5
--- NOTE | 2023-12-12 12:39 | ED ---
General Adult HPI - General Chief complaint: Recheck/Abnormal Lab/Rx Stated complaint: Urogenital Time Seen by Provider: 12/12/23 11:33 Source: patient, RN notes reviewed Mode of arrival: ambulatory Limitations: no limitations - History of Present Illness Initial comments: 48-year-old female presents to the emergency department for evaluation of possible thrombosed hemorrhoid. Patient states that she has a longstanding history of recurrent external hemorrhoids. She states that she has had procedures for this. She states that over the past 3-1/2 days she has noticed pain around her anus in the region of a hemorrhoid. Patient notes that she has had diarrhea recently and this has triggered hemorrhoids in the past. She denies recent fever, rectal bleeding. - Related Data Home Medications Medication Instructions Recorded Confirmed armodafiniL [Nuvigil] 375 mg PO DAILY 07/19/13 10/01/20 Lurasidone [Latuda] 80 mg PO HS 06/22/16 10/01/20 Atorvastatin [Lipitor] 20 mg PO HS 03/03/20 10/01/20 Lisinopril-Hctz 10-12.5 mg 1 tab PO DAILY 03/03/20 10/01/20 [Zestoretic 10-12.5] lamoTRIgine [LaMICtal] 100 mg PO HS 03/03/20 10/01/20 lamoTRIgine [LaMICtal] 200 mg PO BID 03/03/20 10/01/20 Cholecalciferol (Vitamin D3) 125 mcg PO DAILY 10/01/20 10/01/20 [Vitamin D3 (125 MCG = 5,000 IU)] Fish Oil/Dha/Epa [Fish Oil 1,200 1 cap PO DAILY 10/01/20 10/01/20 mg Fish Oil] HYDROcodone/APAP 5-325MG [[place] 5] 1 tab PO Q6HR PRN 10/01/20 10/01/20 Vilazodone HCl [Viibryd] 20 mg PO DAILY 10/01/20 10/01/20 cloNIDine HCL [Catapres] 0.1 mg PO HS 10/01/20 10/01/20 Previous Rx's Medication Instructions Recorded Hydrocortisone [Anusol-Hc] 1 applic RECTAL Q4-6H #30 gm 12/12/23 Lidocaine [Lidocaine Rectal Cream 1 applic TOPICAL Q8HR #30 gram 12/12/23 5%] Allergies Allergy/AdvReac Type Severity Reaction Status Date / Time phenazopyridine HCl Allergy Severe rash Verified 04/21/22 10:18 [From Pyridium] face,arms & [id number] never to have again microfoam tape (chest tube Allergy Rash/Hives Uncoded 04/21/22 10:58 tape) Review of Systems ROS Statement: Those systems with pertinent positive or pertinent negative responses have been documented in the HPI. ROS Other: All systems not noted in ROS Statement are negative. Past Medical History Past Medical History: Hyperlipidemia, Hypertension Additional Past Medical History / Comment(s): NARCOLEPSY- CONTROLLED WITH MEDS, HEMORRHOIDS- IN ER 10/09/14 FOR PAIN-WAS LANCED AND SENT HOME-SEE ER NOTES-HAS HAD THROMBOSED HEMORRHOIDS X 2 BEFORE, OCCASIONAL DIARRHEA, HAS C-PAP BUT IS NOT USING @ THIS TIME History of Any Multi-Drug Resistant Organisms: None Reported Past Surgical History: Adenoidectomy, Cholecystectomy, Tonsillectomy, Tubal Ligation Additional Past Surgical History / Comment(s): laparoscopy, hemmorhoidectomy Past Anesthesia/Blood Transfusion Reactions: No Reported Reaction Additional Past Anesthesia/Blood Transfusion Reaction / Comment(s): difficulty c oming out of anethesia, advised to stay overnight for observation. pt states uncontrollable shaking. Past Psychological History: Anxiety, Bipolar, Depression Smoking Status: Never smoker Past Alcohol Use History: None Reported Past Drug Use History: None Reported - Past Family History Father History Unknown: Yes Mother Family Medical History: No Reported History General Exam Limitations: no limitations General appearance: alert, in no apparent distress Head exam: Present: atraumatic, normocephalic, normal inspection Eye exam: Present: normal appearance, PERRL, EOMI. Absent: scleral icterus, conjunctival injection, periorbital swelling Respiratory exam: Present: normal lung sounds bilaterally. Absent: respiratory distress, wheezes, rales, rhonchi, stridor Cardiovascular Exam: Present: regular rate, normal rhythm, normal heart sounds. Absent: systolic murmur, diastolic murmur, rubs, gallop, clicks Rectal exam: Present: hemorrhoids (external hemorrhoid) Neurological exam: Present: alert, oriented X3 Psychiatric exam: Present: normal affect, normal mood Skin exam: Present: warm, dry, intact, normal color. Absent: rash Course Vital Signs 12/12/23 12/12/23 10:51 12:48 Temperature 98.5 F 98.5 F Pulse Rate 82 80 Respiratory 18 18 Rate Blood Pressure 114/71 112/71 O2 Sat by Pulse 99 99 Oximetry Medical Decision Making - Medical Decision Making Was pt. sent in by a medical professional or institution (SHANTI Gerard, AIRCRAFT ENGINE INSTALLER, urgent care, hospital, or retirement...) When possible be specific @ -No Did you speak to anyone other than the patient for history (EMS, parent, family, police, friend...)? What history was obtained from this source @ -No Did you review nursing and triage notes (agree or disagree)? Why? @ -I reviewed and agree with nursing and triage notes Were old charts reviewed (outside hosp., previous admission, EMS record, old EKG, old radiological studies, urgent care reports/EKG's, retirement records)? Report findings @ -No old charts were reviewed Differential Diagnosis (chest pain, altered mental status, abdominal pain women, abdominal pain men, vaginal bleeding, weakness, fever, dyspnea, syncope, headache, dizziness, GI bleed, back pain, seizure, CVA, palpatations, mental health, musculoskeletal)? @ -Thrombosed hemorrhoid, rectal abscess, prolapsed internal hemorrhoid, this list is not all inclusive EKG interpreted by me (3pts min.). @ -None X-rays interpreted by me (1pt min.). @ -None done CT interpreted by me (1pt min.). @ -None done U/S interpreted by me (1pt. min.). @ -None done What testing was considered but not performed or refused? (CT, X-rays, U/S, labs)? Why? @ -None What meds were considered but not given or refused? Why? @ -None Did you discuss the management of the patient with other professionals (professionals i.e. SHANTI Gerard, AIRCRAFT ENGINE INSTALLER, lab, RT, psych nurse, social media content manager, journeyman plumber, teacher, environmental officer, insurance case manager)? Give summary @ -No Was smoking cessation discussed for >3mins.? @ -No Was critical care preformed (if so, how long)? @ -No Were there social determinants of health that impacted care today? How? (Homelessness, low income, unemployed, alcoholism, drug addiction, transportation, low edu. Level, literacy, decrease access to med. care, [facility], rehab)? @ -No Was there de-escalation of care discussed even if they declined (Discuss DNR or withdrawal of care, Hospice)? DNR status @ -No What co-morbidities impacted this encounter? (DM, HTN, Smoking, COPD, CAD, Cancer, CVA, ARF, Chemo, Hep., AIDS, mental health diagnosis, sleep apnea, morbid obesity)? @ -None Was patient admitted / discharged? Hospital course, mention meds given and route, prescriptions, significant lab abnormalities, going to OR and other pertinent info. @ -Discharged. Patient presented to the emergency department for possible hemorrhoid. Patient has history of thrombosed hemorrhoids that has been excised. She notes pain over the past 3 and half days. She has been utilizing sitz bath's with no relief. On examination, patient has thrombosed external hemorrhoid. Discussed conservative treatment with topical steroids and viscous lidocaine as the duration has been >72 hours. Advised patient to follow up with general surgery. Patient understanding and agreeable with plan. Patient stable at time of discharge. Case discussed with Dr. Damico Undiagnosed new problem with uncertain prognosis? @ -No Drug Therapy requiring intensive monitoring for toxicity (Heparin, Nitro, Insulin, Cardizem)? @ -No Were any procedures done? @ -No Diagnosis/symptom? @ -External hemorrhoid Acute, or Chronic, or Acute on Chronic? @ -Acute Uncomplicated (without systemic symptoms) or Complicated (systemic symptoms)? @ -Uncomplicated Side effects of treatment? @ -No Exacerbation, Progression, or Severe Exacerbation? @ -No Poses a threat to life or bodily function? How? (Chest pain, [place], [place], pneumonia, PE, COPD, DKA, ARF, appy, cholecystitis, CVA, Diverticulitis, Homicidal, Suicidal, threat to staff... and all critical care pts) @ -No Disposition Clinical Impression: External hemorrhoid Disposition: HOME SELF-CARE Condition: Stable Instructions (If sedation given, give patient instructions): Hemorrhoids (ED) Additional Instructions: Please follow up with your primary care provider and general surgery. Return to the emergency department for new or worsening symptoms. Prescriptions: Hydrocortisone [Anusol-Hc] 1 applic RECTAL Q4-6H #30 gm Lidocaine [Lidocaine Rectal Cream 5%] 1 applic TOPICAL Q8HR #30 gram Is patient prescribed a controlled substance at d/c from ED?: No Referrals: Satish Amaya DO [Primary Care Provider] - 1-2 days Jarett Meehan MD [Medical Doctor] - 1-2 days John August MD [STAFF PHYSICIAN] - 1-2 days Tiffanie Feliciano MD [STAFF PHYSICIAN] - 1-2 days Alan Phipps DO [Doctor of Osteopathic Medicine] - 1-2 days
[2023-12-12 12:50] VITALS: BP 112/71; PULSE 80
== END 2023-12-12 12:50 | disposition home or self-care (01) ==
LOC: EC 10:44
DX: K64.4 Residual hemorrhoidal skin tags (principal); Z90.49 Acquired absence of other specified parts of digestive tract; Z90.89 Acquired absence of other organs
CPT/HCPCS: 99283

== ENCOUNTER → 2024-05-24 | Outpatient (CLI) | payer OTHER | END | disposition home or self-care (01) | LOC: LABPRL 13:38 | PROVIDERS: ATTEND Physician Assistant | DX: L50.9 Urticaria, unspecified (principal) | CPT/HCPCS: 84166 ==